=== PATIENT | female | born 1955 | race Caucasian/White ===

== ENCOUNTER → 2017-02-28 | Outpatient (CLI) | payer OTHER ==
[~2017-02-28] MED LIST: /ATOR40TA; BABY81CH; IMODIUM; NITR0.4S; PRIL20CA; THERGRAN
[2017-02-28 08:10] LABS: MEAN CORPUSCULAR HEMOGLOBIN 29.1 pg (27.0-33.0); MEAN CORPUSCULAR HGB CONC 32.6 g/dl (32.0-36.5); MEAN CORPUSCULAR VOLUME 89.4 fl (80.0-96.0); PLATELET COUNT, AUTOMATED 260 10^3/uL (150-450); RED CELL DISTRIBUTION WIDTH 12.5 % (11.5-14.5); WHITE BLOOD COUNT 6.5 10^3/uL (4.0-10.0)
[2017-02-28 08:25] LABS: ALBUMIN 3.5 GM/DL (3.2-5.2); ALKALINE PHOSPHATASE 110 U/L (45-117); ALT/SGPT 25 U/L (12-78); ANION GAP 8 MEQ/L (8-16); AST/SGOT 17 U/L (7-37); BILIRUBIN,TOTAL 0.6 MG/DL (0.2-1.0); BLOOD UREA NITROGEN 18 MG/DL (7-18); CALCIUM LEVEL 8.8 MG/DL (8.8-10.2); CARBON DIOXIDE LEVEL 27 MEQ/L (21-32); CHLORIDE LEVEL 107 MEQ/L (98-107); CHOLESTEROL LEVEL 144 MG/DL (<200); CREATININE FOR GFR 0.87 MG/DL (0.55-1.02); GLOMERULAR FILTRATION RATE > 60.0 (>45); GLUCOSE, FASTING 101 MG/DL (80-110); POTASSIUM SERUM 4.5 MEQ/L (3.5-5.1); SODIUM LEVEL 142 MEQ/L (136-145); TRIGLYCERIDES LEVEL 99 MG/DL (<150)
== END ==
LOC: M LAB 07:11
PROVIDERS: ATTEND Family Medicine
DX: I10 Essential (primary) hypertension (principal)

== ENCOUNTER → 2018-05-06 | Outpatient (CLI) | payer OTHER ==
[2018-05-06 09:13] LABS: HEMATOCRIT 39.4 % (36.0-47.0); HEMOGLOBIN 12.8 g/dl (12.0-15.5); MEAN CORPUSCULAR HEMOGLOBIN 29.2 pg (27.0-33.0); MEAN CORPUSCULAR HGB CONC 32.5 g/dl (32.0-36.5); MEAN CORPUSCULAR VOLUME 89.7 fl (80.0-96.0); PLATELET COUNT, AUTOMATED 275 10^3/uL (150-450); RED BLOOD COUNT 4.39 10^6/uL (4.00-5.40); WHITE BLOOD COUNT 7.3 10^3/uL (4.0-10.0)
[2018-05-06 09:16] LABS: ALBUMIN 3.3 GM/DL (3.2-5.2); ALT/SGPT 27 U/L (12-78); BILIRUBIN,TOTAL 0.7 MG/DL (0.2-1.0); BLOOD UREA NITROGEN 18 MG/DL (7-18); CALCIUM LEVEL 8.9 MG/DL (8.8-10.2); CARBON DIOXIDE LEVEL 29 MEQ/L (21-32); CHLORIDE LEVEL 105 MEQ/L (98-107); CHOLESTEROL LEVEL 161 MG/DL (<200); CHOLESTEROL RISK RATIO 2.639 (<5); CREATININE FOR GFR 0.81 MG/DL (0.55-1.30); GLOMERULAR FILTRATION RATE > 60.0 (>45); GLUCOSE, FASTING 101 MG/DL (70-100); HDL CHOLESTEROL 61 MG/DL (>40); LDL CHOLESTEROL 64 MG/DL (<100); NON-HDL-C 100 MG/DL; POTASSIUM SERUM 4.3 MEQ/L (3.5-5.1); SODIUM LEVEL 139 MEQ/L (136-145); TOTAL PROTEIN 6.6 GM/DL (6.4-8.2); TRIGLYCERIDES LEVEL 178 MG/DL (<150)
== END ==
LOC: M LAB 08:14
PROVIDERS: ATTEND Physician Assistant
DX: I11.9 Hypertensive heart disease without heart failure (principal)

== ENCOUNTER → 2019-05-09 | Outpatient (CLI) | payer OTHER ==
[~2019-05-09] MED LIST changes: -/ATOR40TA; +LIPI1TAB2
[2019-05-09 08:32] LABS: HEMOGLOBIN 12.1 g/dl (12.0-15.5); MEAN CORPUSCULAR HEMOGLOBIN 29.1 pg (27.0-33.0); MEAN CORPUSCULAR HGB CONC 31.8 g/dl (32.0-36.5); MEAN CORPUSCULAR VOLUME 91.3 fl (80.0-96.0); PLATELET COUNT, AUTOMATED 334 10^3/uL (150-450); RED BLOOD COUNT 4.16 10^6/uL (4.00-5.40); WHITE BLOOD COUNT 7.6 10^3/uL (4.0-10.0)
[2019-05-09 08:55] LABS: BLOOD UREA NITROGEN 16 MG/DL (7-18); CALCIUM LEVEL 8.8 MG/DL (8.8-10.2); CARBON DIOXIDE LEVEL 27 MEQ/L (21-32); CHLORIDE LEVEL 106 MEQ/L (98-107); CREATININE FOR GFR 0.91 MG/DL (0.55-1.30); GLOMERULAR FILTRATION RATE > 60.0 (>45); GLUCOSE, FASTING 128 MG/DL (70-100); POTASSIUM SERUM 4.1 MEQ/L (3.5-5.1); SODIUM LEVEL 140 MEQ/L (136-145)
--- NOTE | 2019-05-09 09:58 | ECGEPIP ---
[facility] Test Date: 2019-05-09 Pat Name: CARROLL GAUTHIER Department: Room: - Gender: Female Ribbon Cutter: TANYA : 1955 Requested By: Huber Tabares Order Number: [id number] Reading MD: Yadi Arguelles Measurements Intervals [place] Rate: 68 P: 62 VA: 171 QRS: -19 QRSD: 98 T: 22 QT: 420 QTc: 449 Interpretive Statements SINUS RHYTHM MODERATE VOLTAGE CRITERIA FOR LVH, NONSPECIFIC STT-WAVE ABNORMALITY Left atrial enlargement MARIA KAUFFMAN NO PRIOR Electronically Signed on 05-09-2019 9:58:03 EST by Yadi Arguelles
== END ==
LOC: M LAB 07:52
PROVIDERS: ATTEND Podiatrist Foot & Ankle Surgery
DX: Z01.818 Encounter for other preprocedural examination (principal)

== ENCOUNTER → 2020-01-26 | Outpatient (CLI) | payer MEDICARE, OTHER ==
[2020-01-26 07:24] LABS: HEMATOCRIT 39.8 % (36.0-47.0); HEMOGLOBIN 12.3 g/dl (12.0-15.5); MEAN CORPUSCULAR HEMOGLOBIN 28.4 pg (27.0-33.0); MEAN CORPUSCULAR HGB CONC 30.9 g/dl (32.0-36.5); MEAN CORPUSCULAR VOLUME 91.9 fl (80.0-96.0); PLATELET COUNT, AUTOMATED 280 10^3/uL (150-450); RED BLOOD COUNT 4.33 10^6/uL (4.00-5.40); WHITE BLOOD COUNT 7.5 10^3/uL (4.0-10.0)
[2020-01-26 07:48] LABS: ALBUMIN 3.2 GM/DL (3.2-5.2); ALT/SGPT 18 U/L (12-78); BILIRUBIN,TOTAL 0.6 MG/DL (0.2-1.0); BLOOD UREA NITROGEN 16 MG/DL (7-18); CALCIUM LEVEL 9.2 MG/DL (8.8-10.2); CARBON DIOXIDE LEVEL 27 MEQ/L (21-32); CHLORIDE LEVEL 107 MEQ/L (98-107); CHOLESTEROL LEVEL 170 MG/DL (<200); CHOLESTEROL RISK RATIO 2.656 (<5); CREATININE FOR GFR 0.87 MG/DL (0.55-1.30); GLOMERULAR FILTRATION RATE > 60.0 (>45); GLUCOSE, FASTING 92 MG/DL (70-100); HDL CHOLESTEROL 64 MG/DL (>40); LDL CHOLESTEROL 71 MG/DL (<100); NON-HDL-C 106 MG/DL; POTASSIUM SERUM 4.3 MEQ/L (3.5-5.1); SODIUM LEVEL 141 MEQ/L (136-145); TOTAL PROTEIN 6.8 GM/DL (6.4-8.2); TRIGLYCERIDES LEVEL 175 MG/DL (<150)
== END ==
LOC: M LAB 07:05
PROVIDERS: ATTEND Family Medicine
DX: I10 Essential (primary) hypertension (principal)

== ENCOUNTER → 2020-03-01 | Outpatient (CLI) | payer SELFPAY | LOC: M LABSMTC 17:19 | PROVIDERS: ATTEND Pediatrics | DX: Z20.828 Contact with and (suspected) exposure to other viral communicable diseases (principal) ==

== ENCOUNTER 2020-05-06 12:07 | Emergency (ER) | payer MEDICARE, OTHER ==
[~2020-05-06] VITALS: Ht 172.7 cm; Wt 102.3 kg
--- OUTSIDE RECORDS SUMMARY | 2020-05-06 12:14 | CCD ---
Continuity of Care Document (CCD) Created on: 04/03/2020 Curt Lubna External Reference #: [id number] : 1955 Sex: Female Author Author Lubna ZAMORA PA Organization Unknown Address [address] [place] [address] [place] [address] Phone [phone] Care Team Providers Care Air Battle Manager Name Role Phone Allen Guzman MD AUTM [phone] [place] [employer] AUTM [phone] Problems Description No Information Available Social History Type Date Description Comments Sex Unknown ETOH Use Occasionally consumes alcohol Tobacco Use Start: Unknown Patient has never smoked Smoking Status Reviewed: 04/03/20 Patient has never smoked Allergies, Adverse Reactions, Alerts Description No Known Drug Allergies Medications Active Medications SIG Qnty Indications Ordering Provide r Date Lansoprazole 30mg Capsules DR Unknown Valsartan 320mg Tablets Unknown Atorvastatin Calcium 40mg Tablets Unknown Bupropion Hydrochloride ER (XL) 300mg Tablets ER 24HR Unknown Estradiol 2mg Tablets take one (1) tab daily Unknown Aspirin 81 Low Dose 81mg Chewtabs Unknown Mvi Unknown Maxalt 10mg Tablets 1 tab by mouth at first onset of migraine, may repeat dose in 2 hours if needed Unknown Immunizations Description No Information Available Vital Signs Date Vital Result Comment 04/03/2020 12:48pm BP Systolic 162 mmHg BP Diastolic 82 mmHg Heart Rate 70 /min Respiratory Rate 16 /min O2 % BldC Oximetry 99 % Body Temperature 97.3 F Weight 230.00 lb Pain Level 0 06/29/2018 10:59am BP Systolic 143 mmHg BP Diastolic 88 mmHg Heart Rate 65 /min Respiratory Rate 16 /min O2 % BldC Oximetry 97 % Body Temperature 98.6 F Weight 225.00 lb Height 67.5 inches 5'7.50" BMI (Body Mass Index) 34.7 kg/m2 Pain Level 1 Results Description No Information Available Procedures Description No Information Available Medical Devices Description No Information Available Encounters Type Date Location Provider Dx Diagnosis Office Visit 04/03/2020 11:20a Main Office SOLIS Bustillo J06.9 Acute upper respiratory infection, unspecified Z20.828 Contact w and exposure to ot h viral communicable diseases Assessments Date Code Description Provider 04/03/2020 J06.9 Acute upper respiratory infectio n, unspecified SOLIS Bustillo 04/03/2020 Z20.828 Contact with and (olson spected) exposure to other viral communicable diseases SOLIS Bustillo Plan of Treatment No Information Available Functional Status Description No Information Available Mental Status Description No Information Available Referrals Description No Information Available
--- OUTSIDE RECORDS SUMMARY | 2020-05-06 12:14 | CCD | Continuity of Care Document ---
Author Author Lubna ZAMORA PA Organization Unknown Address [address] [place] [address] [place] [address] Phone [phone] Care Team Providers Care Liquor Runner Name Role Phone Allen Guzman MD AUTM [phone] [place] [employer] AUTM [phone] Problems Description No Information Available Social History [...]
--- OUTSIDE RECORDS SUMMARY | 2020-05-06 12:15 | CCD ---
Author Author Salomon Russo MD [facility] Organization Salomon Russo MD [facility] Address [address] [address] Phone Care Team Providers Care Turner Machine Operator Name Role Phone Megan SULLIVAN, Allen PP [phone] Karan SULLIVAN, FACS, Salomon Romero Unavailable [phone] Reason for Referral No Reason for Referral Recorded Problems Includes: Active, inactive, and resolved Problems All Visits Onset Date - Time Resolved Date - Time Provider Co ndition Status Cataract Senile Nuclear 02/11/2020 - 12:00AM Bernardo [facility] Active Vitreous Disorders Degeneration 02/15/2015 - 12:00AM Salomon Russo MD, FACS Active Dermatochalasis Both Eyelids 10/28/2012 - 12:00AM Salomon Russo MD, FACS Active Note: Unchanged Borderline Glaucoma Open Angle with Borderline Finding s Both Eyes 10/28/2012 - 12:00AM Salomon Russo MD, FACS Active Note: Unchanged Dry Eye Syndrome Both Eyes 10/28/2012 - 12:00AM Saolmon Russo MD, FACS Active Note: Unchanged Vitreous Floaters Both Eyes 10/28/2012 - 12:00AM Salomon Russo MD, FACS Inactive Note: Unchanged Plan of Treatment Pending Tests Order Diagnosis Results Due Ordering Provi petar Testing Ordered - Visual Field Visual Field 24-2 Age-relat ed nuclear cataract, bilateral 03/04/20 Bernardo Peres DO Testing Ordered - OCT OCT DISC Age-related nuclear cataract, bi lateral 03/04/20 Bernardo Peres DO Assessments Includes: Assessments for all patient encounters Findings Encounter Date Dry eye syndrome of both eyes 9 Month Follow-Up with Bernardo Peres DO 02/11/2020 Nuclear senile cataract 9 Month Follow-Up with Bernardo george DO 02/11/2020 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 9 Month Fo llow-Up with Bernardo Larisa DO 02/11/2020 Vitreous degeneration 9 Month Follow-Up with Bernardo Weinste in DO 02/11/2020 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 TESTING - VISUAL FIELD & OCT with Bernardo Larisa DO 12/10/2019 Bilateral myopia 1 Year Follow-Up with Bernardo Larisa DO 05/07/2019 Dry eye syndrome of both eyes 1 Year Follow-Up with Bernardo Larisa DO 05/07/2019 Nuclear senile cataract 1 Year Follow-Up with Bernardo Weinst ein DO 05/07/2019 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 1 Year Fol low-Up with Bernardo Larisa DO 05/07/2019 Vitreous degeneration 1 Year Follow-Up with Bernardo Weinstei n DO 05/07/2019 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 TESTING - VISUAL FIELD & OCT with Bernardo Larisa DO 10/02/2018 Dry eye syndrome of both eyes 6 Month Follow-Up with Bernardo Larisa DO 02/06/2018 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 6 Month Fo llow-Up with Bernardo Larisa DO 02/06/2018 Vitreous degeneration 6 Month Follow-Up with Bernardo Weinste in DO 02/06/2018 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 TESTING - VISUAL FIELD & OCT with Bernardo Larisa DO 09/27/2017 Dry eye syndrome of both eyes 8 Month Follow-Up with Bernardo Larisa DO 08/15/2017 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 8 Month Fo llow-Up with Bernardo Larisa DO 08/15/2017 Vitreous degeneration 8 Month Follow-Up with Bernardo Weinste in DO 08/15/2017 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 TESTING VF 24-2 & OCT DISC with Bernardo Larisa DO 12/21/2016 Dry eye syndrome of both eyes 8 Month Follow-Up with Bernardo Larisa DO 11/24/2016 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 8 Month Fo llow-Up with Bernardo Larisa DO 11/24/2016 Vitreous degeneration 8 Month Follow-Up with Bernardo Weinste in DO 11/24/2016 Dry eye syndrome of both eyes 1 Year Follow-Up with Roland Russo MD, FACS 02/03/2016 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 1 Year Fol low-Up with Salomon Russo MD, FACS 02/03/2016 Vitreous degeneration 1 Year Follow-Up with Salomon jean baptiste MD, FACS 02/03/2016 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 TESTING VF 24-2 & OCT DISC with Salomon Russo MD, FACS 11/17/2015 Dry eye syndrome of both eyes 6 Month Follow-Up with Juan Francisco Russo MD, FACS 02/15/2015 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 6 Month Fo llow-Up with Salomon Russo MD, FACS 02/15/2015 Vitreous degeneration 6 Month Follow-Up with Salomon Moran MD, FACS 02/15/2015 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 TESTING - VISUAL FIELD & OCT with Salomon Russo MD, FACS 08/26/2014 Dermatochalasis of both eyes 6 Month Follow-Up with Roland Russo MD, FACS 07/06/2014 Dry eye syndrome of both eyes 6 Month Follow-Up with Juan Francisco Russo MD, FACS 07/06/2014 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 6 Month Fo llow-Up with Salomon Russo MD, FACS 07/06/2014 Vitreous floaters in both eyes 6 Month Follow-Up with Salomon Russo MD, FACS 07/06/2014 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 TESTING - VISUAL FIELD & OCT with Salomon Russo MD, FACS 01/28/2014 Dermatochalasis of both eyes 6 Month Follow-Up with Roland Russo MD, FACS 11/13/2013 Dry eye syndrome of both eyes 6 Month Follow-Up with Juan Francisco Russo MD, FACS 11/13/2013 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 6 Month Fo llow-Up with Salomon Russo MD, FACS 11/13/2013 Vitreous floaters in both eyes 6 Month Follow-Up with Salomon Russo MD, FACS 11/13/2013 Classic migraine (with aura) 6 Month Follow-Up with Roland Russo MD, FACS 05/22/2013 Dermatochalasis of both eyes 6 Month Follow-Up with Roland Russo MD, FACS 05/22/2013 Dry eye syndrome of both eyes 6 Month Follow-Up with Juan Francisco Russo MD, FACS 05/22/2013 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 6 Month Fo llow-Up with Salomon Russo MD, FACS 05/22/2013 Vitreous floaters in both eyes 6 Month Follow-Up with Salomon Russo MD, FACS 05/22/2013 Dermatochalasis of both eyes 6 Month Follow-Up with Roland Russo MD, FACS 10/28/2012 Dry eye syndrome of both eyes 6 Month Follow-Up with Juan Francisco Russo MD, FACS 10/28/2012 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 6 Month Fo llow-Up with Salomon Russo MD, FACS 10/28/2012 Vitreous floaters in both eyes 6 Month Follow-Up with Salomon Russo MD, FACS 10/28/2012 Instructions Instructions not supported for this document typeNo Instructions Recorded Medical Equipment - Implanted Devices Includes: Current and historical DevicesNo Medical Equipment Recorded Medications Includes: Current and historical Medications Current Medications (continue as prescribed) Latanoprost 0.005% Ophthalmic Solution 05/07/2019 P rovider: Bernardo Peres DO Diagnosis: Open angle with bord nate findings, low risk, bilateral One drop in each eye at night time. Chlorthalidone 25 MG Oral Tablet 05/07/2019 Provide r: Diagnosis: 1/2 pill MWF Valsartan 320 MG Oral Tablet 05/07/2019 Provider: Diagnosis: buPROPion HCl ER (XL) 300 MG OR TB24 10/28/2012 Pro vider: Diagnosis: Maxalt 10 MG OR TABS 10/28/2012 Provider: Diagnosis: Aspirin 81 MG OR TABS 10/28/2012 Provider: Diagnosis: Estradiol 2 MG OR TABS 10/28/2012 Provider: Diagnosis: Lipitor 40 MG OR TABS 10/28/2012 Provider: Diagnosis: Past Medications on file Latanoprost 0.005% Ophthalmic Solution 02/06/2018 - 05/07/19 20 Provider: Bernardo Peres DO Diagnosis: Open angle with bord nate findings, low risk, bilateral One drop in each eye at night time. Latanoprost 0.005% Ophthalmic Solution 09/27/2017 - 02/07/20 18 Provider: Salomon Russo MD, [facility] Diagnosis: Open angle with bord nate findings, low risk, bilateral One drop in each eye at night time. Latanoprost 0.005 % Solution 02/03/2016 - 09/27/2017 Provide r: Salomon Russo MD, FACS Diagnosis: Open angle with bord nate findings, low risk, bilateral One drop in each eye at night time. GNP Vitamin D 1000 UNIT Tablet 02/15/2015 - 05/07/2019 Provi petar: Diagnosis: Acidophilus Probiotic Tablet 02/15/2015 - 02/03/2016 Provide r: Diagnosis: Latanoprost 0.005 % Solution 07/06/2014 - 02/03/2016 Provide r: Salomon Russo MD, FACS Diagnosis: Opn angl brderln lo risk One drop in each eye at night time. Latanoprost 0.005% OP SOLN 05/22/2013 - 07/06/2014 Provider: Salomon Russo MD, FACS Diagnosis: Opn angl brderln lo risk Multivitamins OR TABS 10/28/2012 - 02/15/2015 Provider: Diagnosis: Vagifem 10 MCG VA TABS 10/28/2012 - 05/22/2013 Provider: Diagnosis: 1x a day for 14 days then 2x a week Lansoprazole 30 MG OR CPDR 10/28/2012 - 07/06/2014 Provider: Diagnosis: Diovan 320 MG OR TABS 10/28/2012 - 05/07/2019 Provider: Diagnosis: Latanoprost 0.005% OP SOLN 10/28/2012 - 10/23/2013 Provider: Salomon Russo MD, FACS Diagnosis: Opn angl brderln lo risk keep on file. Latanoprost 0.005% OP SOLN 09/23/2012 - 10/28/2012 Provider: Salomon Russo MD, FACS Diagnosis: Medications Administered Includes: Administered Medications in patient's chartNo Administered Medications Recorded Vital Signs Includes: Vital Signs from 02/10/2019 through 02/11/2020No Vital Signs Recorded For Specified Dates Results Includes: Results from 02/10/2019 through 02/11/2020No Results Recorded For Specified Dates History of Present Illness History of Present Illness not supported for this document typeNo History of Present Illness Recorded Social History Description Last Updated Alcohol 02/11/2020 No tobacco use 02/11/2020 Not using drugs 02/11/2020 Smoking status : Former smoker 02/11/2020 Wine consumption 1 drink/week 02/11/2020 Previous smoking history 1 ppd x 20 yrs 02/15/2015 Alcohol use 10/28/2012 Procedures and Surgical History Includes: Procedures from 02/10/2019 through 02/11/2020 Procedures Code Diagnosis Performing Provider Service Location Service Date Intermediate Eye Exam Established Patient 36678 Open angle with borderline findings, low risk, bilateral, Age-related nuclear cataract, bilateral, Dry eye syndrome of bilateral lacrimal glands, Vitreous degeneration, bilateral Bernardo Peres DO 02/11/2020 Visual Field 54710 Open angle with borderline findi ngs, low risk, bilateral Bernardo Johnston MD [facility] 12/10/2019 Scodi, optic nerve with interpretation and report 99965 Open angle with borderline findings, low risk, bilateral Bernardo Eagle MD [facility] 12/10/2019 Comprehensive eye exam established patient (Signi/Sep Eval. & Man.) 17097 Open angle with borderline findings, low risk, bilateral, Age-related nuclear cataract, bilateral, Dry eye syndrome of bilateral lacrimal glands Bernardo Johnston MD [facility] 05/07/2019 Refraction [id number] Myopia, bilateral Bernardo Peres DO Da philomena Russo MD [facility] 05/07/2019 Surgical History Last Updated Surgical / procedural history : Breast B iopsy, Cholecystectomy, Hysterectomy, Bunion Surgery, Bladder Prolapse, Cancerous mole removed 05/23/2013 History of LASIK surgery of both corneas - 05/22 Medical History Includes: Medical History in patient's chart Description Last Updated Currently wearing eyeglasses driving only, and otc re aders 02/11/2020 History of essential hypertension 02/15/2015 Reported medical history : Reflux, Depression, Migrain es 08/26/2014 History of hyperlipidemia 05/22/2013 No recent change in medical history 05/22/2013 History of hypertension 10/28/2012 Family History Includes: Family History in patient's chart Description Last Updated Maternal history of macular degeneration 02/11/2020 Paternal history of family history of cancer 5 Maternal history of arthritis 07/06/2014 Maternal history of hypertension 07/06/2014 Paternal history of cataract 07/06/2014 Paternal history of diabetes mellitus 07/06/2014 Paternal history of heart disease 07/06/2014 Review of Systems Review of Systems not supported for this document typeNo Review of Systems Recorded Mental Status Mental Status not supported for this document type Description Oriented to time, place, and person Functional Status Functional Status not supported for this document typeNo Functional Status Recorded Physical Exam Physical Exam not supported for this document typeNo Physical Exam Recorded Immunizations Includes: Immunizations in patient's chartNo Immunizations Recorded Allergies Includes: Active, inactive, and resolved AllergiesNo Known Allergies Encounters Includes: Encounters from 02/10/2019 through 02/11/2020 Encounter Provider Location Date Check-In Time Check-Out Time D iagnosis 9 Month Follow-Up Bernardo Johnston MD [facility] 8:55AM 9:48AM Cataract Senile Nuclear, Dry Eye Syndrome Both Eyes, Borderline Glaucoma Open Angle with Borderline Findings Both Eyes, Vitreous Disorders Degeneration TESTING - VISUAL FIELD & OCT Bernardo Leggett MD [facility] 12/10/2019 7:36AM 7:57AM Borderline Glaucoma Open Angle with Borderline Findings Both Eyes OCT DISC Salomon Russo MD [facility] 12/10/2019 7:36AM 7:57 AM 1 Year Follow-Up Bernardo Johnston MD [facility] 04/26 9:43AM 11:02AM Refractive Error - Myopia Bi lateral, Borderline Glaucoma Open Angle with Borderline Findings Both Eyes, Dry Eye Syndrome Both Eyes, Vitreous Disorders Degeneration, Cataract Senile Nuclear Insurance Includes: Active Insurance Policies Plan Name Member ID Group # Subscriber Relationship Effective Da zoë 1 - Medicare Part [facility] ([facility]) [id number] Lubna Elias Self 2 - [employer] Care Management /PRIOR AUTHS NEEDED [id number] Nita Elias Self Advance Directives Includes: Current Advance DirectivesNo Advance Directives Recorded Health Concerns Includes: Active Health ConcernsNo Active Health Concerns Recorded Goals Includes: Active GoalsNo Active Goals Recorded Interventions Includes: Interventions for active GoalsNo Interventions Recorded Evaluations & Outcomes Includes: Evaluations & Outcomes for active GoalsNo Outcomes Recorded
--- OUTSIDE RECORDS SUMMARY | 2020-05-06 12:15 | CCD | Continuity of Care Document ---
Author Author Lubna KIRBY PA-C Organization Unknown Address 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 eart failure Salomon Gu MD Onset: 09/23/2012 Electrocardiogram abnormal Salomon Gu MD Onset: 09/23 Pure hypercholesterolemia Esme Kirby PA-C Onset: 2019 Sleep apnea Salomon Gu MD Onset: 03/02/2014 Dietary management surveillance SOLIS Alvares Onset: 10/17/2017 Obstructive sleep apnea syndrome Esme Kirby PA-C Onset: 09/01/2019 Social History Type Date Description Comments Sex Unknown ETOH Use Consumes Wine 4 per week Tobacco Use Start: Unknown End: Unknown Patient is a former smoker quit 1989, 1 ppd for 16 years Smoking Status Reviewed: 03/02/20 Patient is a former smoker qu it 1989, ppd for 16 years Exercise Type/Frequency Exercises sporadically k ayaking, walking Exercise Limitations Orthopedic Problem s/p buni onectomy Allergies, Adverse Reactions, Alerts Description No Known Drug Allergies Medications Active Medications SIG Qnty Indications Ordering Provide r Date Valsartan 320mg Tablets 1 by mouth daily at bedtime Unknown 11/03/2018 Multi Vitamin Daily Tablets once daily Unknown 05/02/2018 Chlorthalidone 25mg Tablets take 1/2 a tablet by mouth on sunday, sunday , and sunday 15tabs I11.9 Jaylen Young MD 10/17/2017 Atorvastatin Calcium 40mg Tablets 1 by mouth every night at bedtime Allen Guzman MD Maxalt 10mg Tablets 1 tab po prn Deborah Kumar MD 09/22/2012 Bupropion HCL XL 300mg Tablets ER 24HR 1 po qd Deborah Kumar MD 09/22/2012 Estradiol 2mg Tablets 1 by mouth twice a day Deborah Kumar MD 09/22/2012 Latanoprost 0.005% Solution 1 gtt o.u. hs Deborah Kumar MD 09/22/2012 Aspirin 81mg Tablets 1 po nelda ly Unknown 12/14/2008 Immunizations Description No Information Available Vital Signs Date Vital Result Comment 03/02/2020 8:05am Weight 231.00 lb Home Weight 230lb Home weight Height 68 inches 5'8" BMI (Body Mass Index) 35.1 kg/m2 Heart Rate 64 /min Regular Respiratory Rate 16 /min BP Systolic Right Arm 136 mmHg sitting, large cuf f BP Diastolic Right Arm 78 mmHg sitting, large cu ff BP Systolic Left Arm 136 mmHg sitting BP Diastolic Left Arm 74 mmHg sitting 09/01/2019 7:54am Weight 234.00 lb Height 68 inches 5'8" BMI (Body Mass Index) 35.6 kg/m2 Heart Rate 68 /min Regular Respiratory Rate 16 /min BP Systolic Right Arm 130 mmHg sitting, regular c uff BP Diastolic Right Arm 76 mmHg sitting, regular cuff BP Systolic Left Arm 130 mmHg sitting BP Diastolic Left Arm 80 mmHg sitting Results Test Acquired Date Facility Test Result H/L Range Note CMP 01/26/2020 [facility] - not interfaced (315)- - Albumin Serum/Plasma 3.2 Alt - SGPT 18 Calcium Ser/Plasma Mass/Vol 9.2 Carbon Dioxide Ser/Plasm 27 Chloride Serum/Plasma 107 Alkaline Phosphatase 131 Potassium 4.3 Protein Total 6.8 Sodium 141 Ast - Sgot 13 BUN - Urea Nitrogen 16 Glucose 92 70-100 Creatinine For GFR 0.87 Lipid Profile/Cardiac Risk Pro 01/26/2020 [facility] - not interfaced (315)- - Triglycerides 175 High <150 Cholesterol 170 <200 HDL 64 >40.0 LDL Cholesterol 71 Chol/HDL Ratio 2.656 <5 CBC without Differential 01/26/2020 [facility] - not inter faced (315)- - White Blood Count 7.5 4.0-10.0 Red Blood Count 4.33 4.00-5.40 Platelets 280 150-450 Hemoglobin 12.3 Hematocrit 39.8 Procedures Date Code Description Status 03/02/2020 92492 ECG 12-Lead Completed Medical Devices Description No Information Available Encounters Type Date Location Provider Dx Diagnosis Office Visit 03/02/2020 8:15a Main Office Esme Kirby PA-C I25.1 0 Athscl heart disease of [place] coronary artery w/o ang pctrs I11.9 Hypertensive heart disease w ithout heart failure R94.31 Abnormal electrocardiogram [ ECG] [EKG] E78.00 Pure hypercholesterolemia, u nspecified G47.33 Obstructive sleep apnea ([place]) (pediatric) Z71.3 Dietary counseling and surve illance Assessments Date Code Description Provider 03/02/2020 I25.10 Atherosclerotic heart disease of [place] coronary artery with Esme Kirby PA-C 03/02/2020 I11.9 Hypertensive heart disease witho ut heart failure Esme Kirby PA-C 03/02/2020 R94.31 Abnormal electrocardiogram [ECG] [EKG] Esme Kirby PA-C 03/02/2020 E78.00 Pure hypercholesterolemia, unspe cified Esme Kirby PA-C 03/02/2020 G47.33 Obstructive sleep apnea (adult) (pediatric) Esme Kirby PA-C 03/02/2020 Z71.3 Dietary counseling and surveilla nce Esme Kirby PA-C Plan of Treatment Future Appointment(s):* 08/31/2020 1:00 pm - Esme Kirby PA-C at Main Office 03/02/2020 - Esme iKrby PA-C* I25.10 Atherosclerotic heart disease of [place] coronary artery with * I11.9 Hypertensive heart disease without heart failure * R94.31 Abnormal electrocardiogram [ECG] [EKG] * E78.00 Pure hypercholesterolemia, unspecified * G47.33 Obstructive sleep apnea (adult) (pediatric) * Z71.3 Dietary counseling and surveillance* Recommendations:* Follow a low fat/low cholesterol diet and do at least 30 minutes of sustained aerobic activity daily. * All * Follow up:* 6 month follow up. Functional Status Functional Condition Comment Date Status Independent with all ADL's Activ e Mental Status Description No Information Available Referrals Description No Information Available
--- OUTSIDE RECORDS SUMMARY | 2020-05-06 12:15 | CCD | Continuity of Care Document ---
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 Name Role Phone Gloria Newsome MD AUT[facility] [phone] Allen Guzman MD [facility] [phone] Salomon Osullivan DO AUTM [phone] Kennedi Queen NP AUTM [phone] Problems Active Problems Provider Date Coronary arteriosclerosis Salomon Gu MD Onset: 2012 Benign hypertensive heart disease without congestive h eart failure Salomon Gu MD Onset: 09/23/2012 Electrocardiogram abnormal Salomon Gu MD Onset: 09/23 Pure hypercholesterolemia Esme Locke PA-C Onset: 2019 Sleep apnea Salomon Gu MD Onset: 03/02/2014 Dietary management surveillance SOLIS Alvares Onset: 10/17/2017 Obstructive sleep apnea syndrome Esme Locke PA-C Onset: 09/01/2019 Social History Type Date Description Comments Sex Unknown ETOH Use Consumes Wine 4 per week Tobacco Use Start: Unknown End: Unknown Patient is a former smoker quit 1989, 1 ppd for 16 years Smoking Status Reviewed: 09/01/19 Patient is a former smoker qu it [...] Available Vital Signs Date Vital Result Comment 09/01/2019 7:54am Weight 234.00 lb Height 68 inches 5'8" BMI (Body Mass Index) 35.6 kg/m2 Heart Rate 68 /min Regular Respiratory Rate 16 /min BP Systolic Right Arm 130 mmHg sitting, regular c uff BP Diastolic Right Arm 76 mmHg sitting, regular cuff BP Systolic Left Arm 130 mmHg sitting BP Diastolic Left Arm 80 mmHg sitting 11/04/2018 10:49am Weight 234.00 lb Home Weight 232lb at home weight Height 68 inches 5'8" BMI (Body Mass Index) 35.6 kg/m2 Heart Rate 70 /min BP Systolic Sitting 124 mmHg BP Diastolic Sitting 84 mmHg Results Test Acquired Date Facility Test Result H/L Range Note CMP 01/26/2020 [facility] - not interfaced (315)- - Albumin Serum/Plasma 3.2 Alt - SGPT 18 Calcium Ser/Plasma Mass/Vol 9.2 Carbon Dioxide Ser/Plasm 27 Chloride Serum/Plasma 107 Alkaline Phosphatase 131 Potassium 4.3 Protein Total 6.8 Sodium 141 Ast - Sgot 13 BUN - Urea Nitrogen 16 Glucose 92 70-100 Creatinine For GFR 0.87 Lipid Profile/Cardiac Risk Pro 01/26/2020 [facility] - not interfaced (315)- - Triglycerides 175 High <150 Cholesterol 170 <200 HDL 64 >40.0 LDL Cholesterol 71 Chol/HDL Ratio 2.656 <5 CBC without Differential 01/26/2020 [facility] - not inter faced (315)- - White Blood Count 7.5 4.0-10.0 Red Blood Count 4.33 4.00-5.40 Platelets 280 150-450 Hemoglobin 12.3 Hematocrit 39.8 Procedures Date Code Description Status 09/01/2019 21568 ECG 12-Lead Completed Medical Devices Description No Information Available Encounters Type Date Location Provider Dx Diagnosis Office Visit 09/01/2019 7:45a Main Office Esme Locke PA-C I25.1 0 Athscl heart disease of [place] coronary artery w/o ang pctrs I11.9 Hypertensive heart disease w ithout heart failure R94.31 Abnormal electrocardiogram [ ECG] [EKG] E78.00 Pure hypercholesterolemia, u nspecified G47.33 Obstructive sleep apnea ([place] lt) (pediatric) Z71.3 Dietary counseling and surve illance Assessments Date Code Description Provider 09/01/2019 I25.10 Atherosclerotic heart disease of [place] coronary artery with Esme Locke PA-C 09/01/2019 I11.9 Hypertensive heart disease witho ut heart failure Esme Locke PA-C 09/01/2019 R94.31 Abnormal electrocardiogram [ECG] [EKG] Esme Locke PA-C 09/01/2019 E78.00 Pure hypercholesterolemia, unspe cified Esme Locke PA-C 09/01/2019 G47.33 Obstructive sleep apnea (adult) (pediatric) Esme Locke PA-C 09/01/2019 Z71.3 Dietary counseling and surveilla nce Esme Locke PA-C Plan of Treatment Future Appointment(s):* 03/02/2020 8:15 am - Esme Locke PA-C at Main Office 09/01/2019 - Esme Locke PA-C* I25.10 Atherosclerotic heart disease of [place] coronary artery with * I11.9 Hypertensive heart [...]
--- OUTSIDE RECORDS SUMMARY | 2020-05-06 12:15 | CCD ---
Author Author [facility] Organization [facility] Address Unknown Phone Unavailable Care Team Providers Care Public Message Service Supervisor Name Role Phone Otisenow, Ashlie Victoria PA Unavailable Unavailable Symenow, Ashlie Victoria PA Unavailable Unavailable Symenow, Ashlie Victoria PA Unavailable Unavailable Symenow, Ashlie Victoria PA Unavailable Unavailable Symenow, Ashlie Victoria PA Unavailable Unavailable Symenow, Ashlie Victoria PA Unavailable Unavailable Symenow, Ashlie Victoria PA Unavailable Unavailable Symenow, Ashlie Victoria PA Unavailable Unavailable Symenow, Ashlie Victoria PA Unavailable Unavailable Symenow, Ashlie Victoria PA Unavailable Unavailable Symenow, Ashlie Victoria PA Unavailable Unavailable Symenow, Ashlie Esme PA Unavailable Unavailable Symenow, Ashlie Balese PA Unavailable Unavailable Symenow, Ashlie Esme PA Unavailable Unavailable Symenow, Ashlie Balese PA Unavailable Unavailable Symenow, Ashlie Esme PA Unavailable Unavailable Symenow, Ashlie Esme PA Unavailable Unavailable Symenow, Ashlie Esme PA Unavailable Unavailable Symenow, Ashlie Esme PA Unavailable Unavailable Symenow, Ashlie Balese PA Unavailable Unavailable Symenow, Ashlie Esme PA Unavailable Unavailable Symenow, Ashlie Esme PA Unavailable Unavailable Symenow, Ashlie Esme PA Unavailable Unavailable Symenow, Ashlie Esme PA Unavailable Unavailable Symenow, Ashlie Esme PA Unavailable Unavailable Symenow, Ashlie Esme PA Unavailable Unavailable Symenow, Ashlie Esme PA Unavailable Unavailable Symenow, Ashlie Esme PA Unavailable Unavailable Symenow, Ashlie Esme PA Unavailable Unavailable Symenow, Ashlie Esme PA Unavailable Unavailable Symenow, Ashlie Esme PA Unavailable Unavailable Symenow, Ashlie Esme PA Unavailable Unavailable Symenow, Ashlie Esme PA Unavailable Unavailable Symenow, Ashlie Esme PA Unavailable Unavailable Symenow, Ashlie Esme PA Unavailable Unavailable Symenow, Ashlie Esme PA Unavailable Unavailable Nick PERESEW DO Unavailable [phone] Nick PERES XIAO DO Unavailable [phone] Nick PERES XIAO DO Unavailable [phone] Nick PERES XIAO DO Unavailable [phone] Nick PERES XIAO DO Unavailable [phone] Nick PERES XIAO DO Unavailable [phone] Nick PERES XIAO DO Unavailable [phone] Nick PERES XIAO DO Unavailable [phone] Nick PERES XIAO DO Unavailable [phone] Nick PERES XIAO DO Unavailable [phone] Nick PERES XIAO DO Unavailable [phone] Nick PERESEW DO Unavailable [phone] Nick PERES XIAO DO Unavailable [phone] Nick PERES XIAO DO Unavailable [phone] Nick PERES XIAO DO Unavailable [phone] Nick PREES XIAO DO Unavailable [phone] LARISA, A. XIAO DO Unavailable [phone] Nick PERES DO Unavailable [phone] Nick PERES DO Unavailable [phone] Nick PERES DO Unavailable [phone] Nick PERES DO Unavailable [phone] DIMITRI BIGGS MD Unavailable Unavailable DIMITRI BIGGS MD Unavailable Unavailable DIMITRI BIGGS MD Unavailable Unavailable DIMITRI BIGGS MD Unavailable Unavailable Wadie, Edward DPM Unavailable Unavailable Wadie, Edward DPM Unavailable Unavailable Wadie, Edward DPM Unavailable Unavailable Wadie, Edward DPM Unavailable Unavailable Wadie, Edward DPM Unavailable Unavailable Wadie, Edward DPM Unavailable Unavailable Wadie, Edward DPM Unavailable Unavailable Wadie, Edward DPM Unavailable Unavailable Wadie, Edward DPM Unavailable Unavailable Wadie, Edward DPM Unavailable Unavailable Wadie, Edward DPM Unavailable Unavailable Wadie, Edward DPM Unavailable Unavailable Wadie, Edward DPM Unavailable Unavailable Wadie, Edward DPM Unavailable Unavailable Wadie, Edward DPM Unavailable Unavailable Wadie, Edward DPM Unavailable Unavailable Wadie, Edward DPM Unavailable Unavailable Wadie, Edward DPM Unavailable Unavailable Wadie, Edward DPM Unavailable Unavailable Wadie, Edward DPM Unavailable Unavailable Wadie, Edward DPM Unavailable Unavailable Wadie, Edward DPM Unavailable Unavailable Wadie, Edward DPM Unavailable Unavailable Wadie, Edward DPM Unavailable Unavailable Wadie, Edward DPM Unavailable Unavailable Wadie, Edward DPM Unavailable Unavailable Wadie, Edward DPM Unavailable Unavailable Wadie, Edward DPM Unavailable Unavailable Wadie, Edward DPM Unavailable Unavailable Wadie, Edward DPM Unavailable Unavailable Wadie, Edward DPM Unavailable Unavailable Wadie, Edward DPM Unavailable Unavailable Delaney Cole Unavailable Unavailable Delaney Cole Unavailable Unavailable Delaney Cole Unavailable Unavailable Cole, Delaney Zoe PA Unavailable Unavailable Cole, Delaney Mortensenlyn PA Unavailable Unavailable Cole, Delaney Mortensenlyn PA Unavailable Unavailable Cole, Delaney Mortensenlyn PA Unavailable Unavailable Cole, Delaney Mortensenlyn PA Unavailable Unavailable Cole, Delaney Mortensenlyn PA Unavailable Unavailable Cole, Delaney Mortensenlyn PA Unavailable Unavailable Re-disclosure Warning The records that you are about to access may contain information from federally-assisted alcohol or drug abuse programs. If such information is present, then the following federally mandated warning applies: This information has been disclosed to you from records protected by federal confidentiality rules (42 CFR part 2). The federal rules prohibit you from making any further disclosure of this information unless further disclosure is expressly permitted by the written consent of the person to whom it pertains or as otherwise permitted by 42 CFR part 2. A general authorization for the release of medical or other information is NOT sufficient for this purpose. The Federal rules restrict any use of the information to criminally investigate or prosecute any alcohol or drug abuse patient.The records that you are about to access may contain highly sensitive health information, the redisclosure of which is protected by Article 27-F of the [place] Public Health law. If you continue you may have access to information: Regarding HIV / AIDS; Provided by facilities licensed or operated by the [place] Office of Mental Health; or Provided by the [place] Office for People With Developmental Disabilities. If such information is present, then the following [place] mandated warning applies: This information has been disclosed to you from confidential records which are protected by state law. State law prohibits you from making any further disclosure of this information without the specific written consent of the person to whom it pertains, or as otherwise permitted by law. Any unauthorized further disclosure in violation of state law may result in a fine or mcfp sentence or both. A general authorization for the release of medical or other information is NOT sufficient authorization for further disc losure. Allergies and Adverse Reactions Type Description Substance Reaction Status Data Source(s ) Allergy to substance No Known Allergies No known allergies (situation ) ANURADHA (Salomon Moran MD [facility]) Family History Family Member Name Family Member Gender Family Member Status Date o f Status Description Data Source(s) Unknown Unknown Problem [facility] ([facility], [facility]) Unknown Unknown Problem [facility] Encounters Encounter Providers Location Date Indications Data Source(s ) Outpatient Attender: Zoe Strickland garrick 04/03/2020 10:20:00 AM EST [facility] ([facility], [facility]) Outpatient Attender: Esme ELY Main Office 03/02/2020 07:15:00 AM EST [facility] ([facility]) Outpatient<td ID="encounterTypeDescripti onID0">9 Month Follow-Up</td><td>Xiao Peres DO</td><td>Salomon Russo MD [facility]</td><td>02/11/2020</td><td>8:55AM</td><td>9:48AM</td><td><content ID="encounterDiagnosisID0-0">Cataract Senile Nuclear</content>, <content ID="encounterDiagnosisID0-1">Dry Eye Syndrome Both Eyes</content>, <content ID="encounterDiagnosisID0-2">Borderline Glaucoma Open Angle with Borderline Findings Both Eyes</content>, <content ID="encounterDiagnosisID0-3">Vitreous Disorders Degeneration</content></td> Attender: XIAO Johnston MD [facility] 02/11/2020 08:55:00 AM EST - 02/11/2020 09:48:00 AM ES T Cataract Senile NuclearVitreous Disorders DegenerationBorderline Glaucoma Open Angle with Borderline Findings Both EyesDry Eye Syndrome Both Eyes ANURADHA (Salomon Moran MD [facility]) Cataract Senile Nuclear Vitreous Disorders Degeneration Borderline Glaucoma Open Angle with Bord nate Findings Both Eyes Dry Eye Syndrome Both Eyes Outpatient<td ID="encounterTypeDescripti onID2">OCT DISC</td><td></td><td>Salomon Russo MD [facility]</td><td>12/10/2019</td><td>7:36AM</td><td>7:57AM</td><td></td> Salomon Russo MD [facility] 12/10/2019 07:36:00 AM EDT - 12/10/2019 07:57:00 AM EDT ANURADHA (Salomon Moran MD [facility]) Outpatient<td ID="encounterTypeDescripti onID1">TESTING - VISUAL FIELD & OCT</td><td>Xiao Peres DO</td><td>Salomon Russo MD [facility]</td><td>12/10/2019</td><td>7:36AM</td><td>7:57AM</td><td><content ID="encounterDiagnosisID1-0">Borderline Glaucoma Open Angle with Borderline Findings Both Eyes</content></td> Attender: XIAO Goldsmith MD [facility] 12/10/2019 07:36:00 AM EDT - 12/10/2019 07:57:00 AM ED T Borderline Glaucoma Open Angle with Borderline Findings Both Eyes ANURADHA (Salomon Moran MD [facility]) Borderline Glaucoma Open Angle with Bord nate Findings Both Eyes Outpatient Attender: Esme Locke [place] Main Office 09/01/2019 07:45:00 AM EDT [facility] ([facility] 11:[facility]00 AM EDT [facility] ([facility]) Outpatient Attender: Huber Montenegro DPM [place] Office 04/2019 10:30:00 AM EDT [facility] ([facility]) Outpatient Attender: Huber Monten[place]ro DPM [place] Office 04/26 09:00:00 AM EST [facility] ([facility]) Outpatient<td ID="encounterTypeDescripti onID3">1 Year Follow-Up</td><td>Xiao Peres DO</td><td>Salomon Russo MD [facility]</td><td>05/07/2019</td><td>9:43AM</td><td>11:02AM</td><td><content ID="encounterDiagnosisID3-0">Refractive Error - Myopia Bilateral</content>, <content ID="encounterDiagnosisID3-1">Borderline Glaucoma Open Angle with Borderline Findings Both Eyes</content>, <content ID="encounterDiagnosisID3- 2">Dry Eye Syndrome Both Eyes</content>, <content ID="encounterDiagnosisID3- 3">Vitreous Disorders Degeneration</content>, <content ID="encounterDiagnosisID3-4">Cataract Senile Nuclear</content></td> Attender: XIAO Johnston MD [facility] 05/07/2019 09:43:00 AM EST - 05/07/2019 11:02:00 AM EST Cataract Senile NuclearRefractive Error - Myopia BilateralVitreous Disorders DegenerationDry Eye Syndrome Both EyesBorderline Glaucoma Open Angle with Borderline Findings Both Eyes ANURADHA (Salomon Moran MD [facility]) Cataract Senile Nuclear Refractive Error - Myopia Bilateral Vitreous Disorders Degeneration Dry Eye Syndrome Both Eyes Borderline Glaucoma Open Angle with Bord nate Findings Both Eyes SDC Attender: Huber LEEMAd mitter: Huber Montenegro DPMReferrer: DIMITRI CHRISTINE MD [facility] 04/28/2019 11:34:20 AM EST - 05/29/2019 11:23:00 AM EST [facility] Patient discharged. Outpatient Attender: Huber Montenegro DPM [place] Office 03/28 08:45:00 AM EST [facility] ([facility]) Immunizations Vaccine Date Status Description Data Source(s) PNEUMOCOCCAL 13-VALENT CONJUGATE VACCINE (DIPHTHERIA C RM)/PF 01/12/2020 12:00:00 AM EDT completed [facility] INFLUENZA VACCINE QUADRIVALENT 2019- (65 YR UP)/MF59 C.1/PF 12/10/2019 12:00:00 AM EDT completed [facility] Medications Medication Brand Name Start Date Product Form Dose Route Admi nistrative Instructions Pharmacy Instructions Status Indications Reaction Description Data Source(s) 0.12 % 03/17/2020 12:00:00 AM EST mouthwash 473 SWISH AND SPIT 1/2 OUNCE FOR 30 SECONDS TWICE DAILY SWISH AND SPIT 1/2 OUNCE FOR 30 SECONDS TWICE DAILY SO LD: 03/18/2020 [facility] 0.015 % 07/24/2019 12:00:00 AM EDT gel 3 APPLY TOPICALLY TO RIGHT CHEEK ONCE DAILY FOR 3 DAYS APPLY TOPICALLY TO RIGHT CHEEK ONCE DAILY FOR 3 DAYS S OLD: 07/27/2019 [facility] 5 % 07/17/2019 12:00:00 AM EDT cream 40 APPLY TO BILATERAL TEMPLES, BILATERAL CHEEKS AND LEFT NECK SPARINGLY TWO TIMES A DAY FOR 2 WEEKS APPLY TO BILATERAL TEMPLES, BILATERAL CHEEKS AND LEFT NECK SPARINGLY TWO TIMES A DAY FOR 2 WEEKS SOLD: 07/18/2019 [facility] Magnesium Chloride 0.36579 MEQ/ML / Pota ssium Chloride 0.0497 MEQ/ML / Sodium Acetate 0.0163 MEQ/ML / Sodium Chloride 0.0899 MEQ/ML / Sodium gluconate 5.02 MG/ML Injectable Solution [Normosol-R] electrolyte-R (NORMOSOL-R/PLASMALYTE-R) solution electrolyte-R (NORMOSOL-R/PLASMALYTE-R) solution 05/28 11:00:00 AM EST Intravenous active at 1 00 mL/hr, Intravenous, Continuous, Starting Sydney 05/29/19 at 1100, PACU (only) [facility] Medication administered onsite Acetaminophen 325 MG / Oxycodone Hydroch loride 5 MG Oral Tablet oxyCODONE- acetaminophen (PERCOCET) 5-325 MG 1 tablet oxyCODONE-acetaminophen (PERCOCET) 5- 325 MG 1 tablet 05/29/2019 10:45:29 AM EST 1 {tbl} Oral c ompleted 1 tablet, Oral, Once as needed, for pain level 1-3, Starting Sydney 05/29/19 at 1045, For 1 dose, PACU & Post-op [facility] Medication administered onsite Acetaminophen 325 MG / Oxycodone Hydroch loride 5 MG Oral Tablet oxyCODONE- acetaminophen (PERCOCET) 5-325 MG 2 tablet oxyCODONE-acetaminophen (PERCOCET) 5- 325 MG 2 tablet 05/29/2019 10:39:01 AM EST 2 {tbl} Oral a ctive 2 tablet, Oral, Once as needed, moderate pain (4-6), Starting Sydney 05/29/19 at 1039, For 1 dose, PACU & Post-op [facility] Medication administered onsite ondansetron (ZOFRAN) injection 4 mg 13526-213-27 05/29/2019 10:15:5 2 AM EST 4 mg Intravenous active 4 mg, In travenous, Once as needed, nausea, vomiting, if not given in last 4 hours, Starting Sydney 05/29/19 at 1015, For 1 dose, PACU & Post-op [facility] Medication administered onsite HYDROmorphone (DILAUDID) injection 0.5 mg [id number] 05/29/2019 10:15:52 AM EST 0.5 mg Intravenous active 0.5 mg, Intravenous, Every 5 min PRN, severe pain (7-10), Starting Sdyney 05/29/19 at 1015, For 7 doses, PACU & Post-op [facility] Medication administered onsite Magnesium Chloride 0.25606 MEQ/ML / Pota ssium Chloride 0.0497 MEQ/ML / Sodium Acetate 0.0163 MEQ/ML / Sodium Chloride 0.0899 MEQ/ML / Sodium gluconate 5.02 MG/ML Injectable Solution [Normosol-R] electrolyte-R (NORMOSOL-R/PLASMALYTE-R) solution 1,000 mL electrolyte-R (NORMOSOL-R/PLASMALYTE-R) solution 1,000 mL 05/29/2019 07:00:00 AM EST 1000 mL Intravenous active at 100 mL/hr, 1,000 mL, Intravenous, Continuous, Starting Sydney 05/29/19 at 0700, Pre-op [facility] Medication administered onsite Crutches-Aluminum 05/14/2019 12:00:00 AM EST completed [facility] 5-325 mg 05/14/2019 12:00:00 AM EST tablet 30 TAKE ONE TABLET BY MOUTH EVERY 4 TO 6 HOURS NEEDED MAXIMUM DAILY DOSE = 6 TAKE ONE TABLET BY MOUTH EVERY 4 TO 6 HOURS NEEDED MAXIMUM DAILY DOSE = 6 SOLD: 05/18/2019 [facility] Acetaminophen 325 MG / Oxycodone Hydrochloride 5 MG Or al Tablet [Percocet] Percocet 05/14/2019 12:00:00 AM EST ORAL completed [facility] ([facility]) valsartan 320 MG Oral Tablet Valsartan 320 MG Oral Tab let Valsartan 320 MG Oral Tablet 05/07/2019 12:00:00 AM EST 1 active valsartan 320 MG Oral Tablet ANURADHA (Salomon Moran MD [facility]) Chlorthalidone 25 MG Oral Tablet Chlorthalidone 25 MG Oral T ablet 05/07/2019 12:00:00 AM EST active chlortha lidone 25 MG Oral Tablet ANURADHA (Salomon Moran MD [facility]) latanoprost 0.05 MG/ML Ophthalmic Soluti on Latanoprost 0.005% Ophthalmic Solution Latanoprost 0.005% Ophthalmic Solution 05/07/2019 12:00:00 AM EST 1 active latanoprost 0.05 MG/ ML Ophthalmic Solution ANURADHA (Salomon Moran MD [facility]) 25 mg 08/13/2018 12:00:00 AM EDT tablet 20 TAKE ONE-HALF TABLET BY MOUTH EVERY DAY ON SUNDAY, SUNDAY AND SUNDAY TAKE ONE-HALF TABLET BY MOUTH EVERY DAY ON SUNDAY, SUNDAY AND SUNDAY SOLD: 03/30/2019 [facility] 25 mg 08/13/2018 12:00:00 AM EDT tablet 20 TAKE ONE-HALF TABLET BY MOUTH EVERY DAY ON SUNDAY, SUNDAY AND SUNDAY TAKE ONE-HALF TABLET BY MOUTH EVERY DAY ON SUNDAY, SUNDAY AND SUNDAY SOLD: 07/03/2019 [facility] latanoprost 0.05 MG/ML Ophthalmic Soluti on Latanoprost 0.005% Ophthalmic Solution Latanoprost 0.005% Ophthalmic Solution 02/06/2018 12:00:00 AM EST 1 aborted latanoprost 0.05 MG/ ML Ophthalmic Solution ANURADHA (Salomon Moran MD [facility]) GNP Vitamin D 1000 UNIT Tablet GNP Vitamin D 1000 UNIT Table t 02/15/2015 12:00:00 AM EST 1 aborted GNP Vit navarrete D ANURADHA (Salomon Moran MD [facility]) valsartan 320 MG Oral Tablet [Diovan] Diovan 320 MG OR TABS Diovan 320 MG OR TABS 10/28/2012 12:00:00 AM EDT 1 aborted valsartan 320 MG Oral Tablet [Diovan] ANURADHA (Salomon Moran MD [facility]) Insurance Providers Payer name Policy type / Coverage type Policy ID Covered constitution party ID Covered constitution party's relationship to gracia Policy Gracia Plan Information SELF PAY ONLY [id number] SP [id number] MEDICARE [id number] SP [id number] UMR [facility] [id number] SP [id number] [employer] [place] Other 0 Self 0 Medicare Part B [facility] Other 0 Se lf 0 UMR [id number] UMR [id number] Rita [id number] UMR [id number] Rita [id number] Umr/Uhc/[employer] Maintenance [employer] (HMO) [id number] Self [id number] Umr Commercial [id number] Self [id number] [place] Medigap Part B [id number] Self [id number] Umr Commercial [id number] Self [id number] Umr Commercial [id number] Self [id number] Umr Commercial [id number] Self [id number] Umr Commercial [id number] Self [id number] [employer] [id number] SP [id number] [employer] [id number] SP [id number] [employer] PPO P [id number] S [id number] Problems, Conditions, and Diagnoses Code Display Name Description Problem Type Effective Dates Data Source(s) 366.16 Cataract Senile Nuclear Cataract Senile Nuclear Proble m 02/11/2020 12:00:00 AM EST ANURADHA (Salomon Moran MD [facility]) [id number] Obstructive sleep apnea syndrome Obstructive sle ep apnea syndrome Problem 09/01/2019 12:00:00 AM EDT [facility] ([facility]) [id number] Pure hypercholesterolemia Pure hypercholesterolemia Pr oblem 09/01/2019 12:00:00 AM EDT [facility] ([facility]) [id number] Hammer toe Hammer toe Problem 06/26/2019 12:00:00 AM ED T [facility] ([facility]) [id number] Acquired hallux valgus Acquired hallux valgus Problem 04/25/2019 12:00:00 AM EST [facility] ([facility]) [id number] Pain in limb Pain in limb Problem 04/25/2019 12:00:00 A M EST [facility] ([facility]) M79.672 Pain in left foot Pain in left foot Diagnosis 05/28 06:26:00 AM EST [facility] M20.12 Hallux valgus (acquired), left foot Hallux valgu s (acquired), left foot Diagnosis 05/29/2019 06:26:00 AM EST [facility] Surgeries/Procedures Procedure Description Date Indications Data Source(s) ECG ROUTINE ECG W/LEAST 12 LDS W/I&R 03/02/2020 12:00: 00 AM EST [facility] ([facility]) Intermediate Eye Exam Established Patient Intermediate Eye Exam Established Patient 02/11/2020 12:00:00 AM EST ANURADHA (Sridhar Moran MD [facility]) Scodi, optic nerve with interpretation and report Scod i, optic nerve with interpretation and report 12/10/2019 12:00:00 AM EDT JACOBY Sifuentes (Salomon Moran MD [facility]) Visual Field Visual Field 12/10/2019 12:00:00 AM EDT Travon ARANDA (Salomon Moran MD [facility]) ECG ROUTINE ECG W/LEAST 12 LDS W/I&R 09/01/2019 12:00: 00 AM EDT [facility] ([facility]) X-Ray Foot Complete 08/29/2019 12:00:00 AM EDT [facility] X-Ray Foot Complete 07/28/2019 12:00:00 AM EDT [facility] ([facility]) X-Ray Foot Complete 06/26/2019 12:00:00 AM EDT [facility] ([facility]) Apply Splint Short Leg 06/11/2019 12:00:00 AM EDT [facility] ([facility]) X-Ray Foot Complete 06/04/2019 12:00:00 AM EDT [facility] Hallux Valgus Correction (Lapidus) 05/29/2019 12:00:00 AM EST [facility] Apply Splint Short Leg 05/29/2019 12:00:00 AM EST [facility] Foot Complete 05/14/2019 12:00:00 AM EST [facility] Refraction Refraction 05/07/2019 12:00:00 AM EST Travon ARANDA (Salomon Moran MD [facility]) Comprehensive eye exam established patient (Signi/Sep Eval. & Man.) Comprehensive eye exam established patient (Signi/Sep Eval. & Man.) 05/07/2019 12:00:00 AM EST ANURADHA (Salomon Moran MD [facility]) Results ID Date Data Source [id number] 04/03/2020 12:00:00 AM EST [facility] Name Value Range Interpretation Code Description Data Genna rce(s) Supporting Document(s) SARS coronavirus 2 Ag Negative [facility] This lab was ordered by [facility] and reported by [facility]. ID Date Data Source [id number] 03/01/2020 12:00:00 AM EST [facility] Name Value Range Interpretation Code Description Data Genna rce(s) Supporting Document(s) 2019-nCoV RNA XXX NAHOMI+probe-Imp [facility] This lab was ordered by [facility] and reported by [employer]. ID Date Data Source [id number] 01/26/2020 11:28:00 AM EST [facility] ([facility]) Name Value Range Interpretation Code Description Data Genna rce(s) Supporting Document(s) White Blood Count 7.5 4.0-10.0 [facility] ([facility]) Red Blood Count 4.33 4.00-5.40 [facility] ([facility]) Platelets 280 150-450 [facility] ([facility] Hematocrit 39.8 [facility] ([facility]) Hemoglobin 12.3 [facility] ([facility]) ID Date Data Source [id number] 01/26/2020 11:28:00 AM EST [facility] ([facility]) Name Value Range Interpretation Code Description Data Genna rce(s) Supporting Document(s) Triglycerides 175 [facility] ([facility]) HDL 64 [facility] ([facility] Cholesterol 170 [facility] ([facility]) Cholesterol in LDL [Mass/volume] in Serum or Plasma by calculation 71 [facility] ([facility]) Chol/HDL Ratio 2.656 [facility] ([facility]) ID Date Data Source [id number] 01/26/2020 11:28:00 AM EST [facility] ([facility]) Name Value Range Interpretation Code Description Data Genna rce(s) Supporting Document(s) Albumin [Mass/volume] in Serum or Plasma 3.2 [facility] ([facility]) Alanine aminotransferase [Enzymatic activity/volume] in Serum or Pl asma 18 [facility] ([facility] [facility]) Calcium [Mass/volume] in Serum or Plasma 9.2 [facility] ([facility]) Carbon dioxide, total [Moles/volume] in Serum or Plasma 27 [facility] ([facility]) Chloride [Moles/volume] in Serum or Plasma 107 [facility] ([facility]) Potassium [Moles/volume] in Serum or Plasma 4.3 [facility] ([facility]) Alkaline phosphatase [Enzymatic activity/volume] in Serum or Plasma 1 31 [facility] ([facility]) Protein [Mass/volume] in Serum or Plasma 6.8 [facility] ([facility]) Sodium 141 [facility] ([facility] Aspartate aminotransferase [Enzymatic activity/volume] in Serum or Plasma 13 [facility] ([facility]) Urea nitrogen [Mass/volume] in Serum or Plasma 16 [facility] ([facility]) Glucose 92 70-100 [facility] ([facility] Creatinine For GFR 0.87 [facility] ([facility]) ID Date Data Source [id number] 06/10/2019 10:53:29 AM EDT [facility] NT INFORMATIONPatient MRN Name Date of Age Gend*PT [id number] Lubna Elias 1955 63 years F SDCPT Location Admission Date/Time Visit [facility] --- --- EPI ID CSN Admitting Provider [id number] Huber Montenegro DPM([id number]) [place] [address] OPERATIVE REPORT OPNAME: LUBNA ELIAS#: [id number] #: [id number] ADMISSION DATE: 05/29/2019DOB: 1955 SEX: F PT TYPE: H SURAMIRAHT #: [id number] CARE PHYSICIAN:DATE OF OPERATION: 05/29/2019PLACE OF S [facility].SURGEON:Huber Montenegro DPM.PELT SALTER:None.PREOPERATIVE DIAGNOSIS:Painful bunion deformity of the left foot.POSTOPERATIVE DIAGNOSIS:Painful bunion deformity of the left foot.PROCEDURES:1. Lapidus fusion of the first metatarsal cuneiform joint of the leftfoot.2. Application of posterior splint, left leg.ANESTHESIA:General anesthesia and local.HEMOSTASIS:Pneumatic ankle tourniquet of the left ankle at 250 mmHg.ESTIMATED BLOOD LOSS:Minimal, less than 10 mL.INDICATION FOR PROCEDURE:This is a 63-year-old female who had presented to my office with pain onthe left foot due to severe bunion deformity. On physical examination,there was noted hypermobile first ray of the left foot. Patient had trieddifferent shoe gear, multiple inserts, different pain medication withminimal improvement. Patient was up to surgical correction. All benefits,risks, and complication of the procedure were discussed with the patient.Patient agreed to have the surgery. Consent was obtained and included inthe chart.DESCRIPTION OF PROCEDURE:Patient was brought into the operating room and placed on the operatingtable in the supine position. A pneumatic ankle tourniquet was then placedaround the left ankle. Following administration of general anesthesia,local infiltration of the first ray of the left foot was obtained [id number] mL of 1:1 mixture of 0.5% Marcaine plain and 2% lidocaine plain. Theleft foot was then scrubbed, prepped and draped in the usual asepticmanner. An Esmarch bandage was used to accentuate the left foot and thepneumatic ankle tourniquet was then inflated at 250 mmHg. Attention wasthen directed to the dorsal aspect of the left first ray where alongitudinal skin incision was obtained on the dorsal aspect of the firstray medial and parallel to the extensor hallucis tendons. Skin incisionwas then centered over the first metatarsophalangeal joint. This incisionwas then deepened through the subcutaneous tissue with care being taken toidentify and retract all vital neural and vascular structures. Next,attention was directed to the first intermetatarsal space via the originalincision where deep dissection was obtained utilizing sharp and bluntdissection. Lateral capsulotomy of the first metatarsophalangeal joint wasobtained. Next, the abductor hallucis tendon was identified andtenotomized. Next, the extensor hallucis brevis tendon was identified andtenotomized. Next, a Z-lengthening of the extensor hallucis longus tendonwas obtained. Upon completion of all those steps, the lateral contractureof the left hallux was noted to be released and the sesamoid apparatus wentto the proper position. Next, a linear incision of the periosteal andcapsular structures was obtained. The periosteal and capsular structurewas then reflected medially and laterally, thus exposing the head of thefirst metatarsal and the base of the hallux to the operative field.Utilizing the sagittal saw, the medial bony prominence of the head of thefirst metatarsal and base of the left hallux was excised and removed andpassed from the operative field. Next, a skin incision was then extendedmore proximally over the first metatarsal cuneiform joint. The incisionwas then deepened through the subcutaneous tissue with care being taken toidentify and retract all vital neural and vascular structures. Next, aperiosteal and a capsular incision was obtained over the firstmetatarsal-cuneiform joint. The periosteal and the capsular structure wasthen reflected medially and laterally, thus exposing the joint to theoperative field. Next, utilizing the sagittal saw, a transverse osteotomycut was obtained in the base of the first metatarsal and another osteotomycut was obtained on the distal aspect of the medial cuneiform. Uponcompletion of both cuts, a wafer of bone was removed from the base of thefirst metatarsal and the distal aspect of the medial cuneiform to removeall the cartilaginous part of the joint. Next, utilizing the sagittal saw,the lateral aspect of the base of the first metatarsal was excised andremoved. Upon completion of those steps, the first metatarsal wasplantarflexed and corrected into straight position. Utilizing a 0.201-kqczF-ntgv, it was driven from the first metatarsal across to the secondmetatarsal to act as a temporary fixation. Utilizing mini C-arm,fluoroscopic pictures were taken to confirm correct position of the firstmetatarsal with excellent correction of the intermetatarsal angle. Next,utilizing a K-wire from the Ar[employer] bone screw set, the K-wire was drivenfrom the dorsal lateral aspect of the base of the first metatarsal into theplantar medial aspect of the cuneiform to act as a temporary fixation aswell as guidance for screw fixation. Following AO principle and technique,4.0 x 36 mm cannulated headless self-tapping bone screw from the Arthrexwere inserted with excellent compression noted. Utilizing the mini C-arm,fluoroscopic pictures were taken to confirm excellent position of the screwacross the joint. Next, the K-wire was removed and passed from theoperative field. Utilizing a Lapidus T-shaped plate from [employer], a smallsize was used and applied on the dorsal aspect of the joint to act as abuttress plate. The plate was fixated to the bone with locking screws, twoof 3.5 x 16 mm as well as one of 3.5 x 12 mm locking screws. Uponcompletion of the fixation, fluoroscopic pictures were taken to confirmexcellent position of the fixation with excellent correction of thedeformity. The 0.062 inch K-wire was then removed and passed from theoperative field. Next, the surgical incision was irrigated with copiousamount of sterile normal saline. The periosteal and the capsular structurewas then reapproximated and coapted utilizing 3-0 Vicryl. The subcutaneoustissue was then reapproximated and coapted utilizing 4-0 Vicryl. T he skinwas then reapproximated and coapted utilizing 4-0 nylon in a horizontalmattress suture technique mixed it with simple interrupted suturetechnique. Upon completion of the procedure, 20 mL of 0.5% Marcaine plainwere injected as a postoperative anesthesia block. Also, 1 mL ofdexamethasone phosphate was also injected around the incision site. Thesurgical incision was then dressed with Betadine soaked Adaptic, 4 x 4, andKerlix. The pneumatic ankle tourniquet was then deflated and a prompthyperemic response was noted to all digits of the left foot. Next, acotton roll was applied around the left foot and leg. Utilizing the QuickStep a posterior splint was applied and secured with Nathan wraps. Patienttolerated the procedure and anesthesia very well. Patient was transferredto the recovery room with vital signs stable and vascular status intact tothe left foot.KARO VIDALES/ANGELICA Job #: [id number] DOC #: [id number] Name Value Range Interpretation Code Description Data Genna rce(s) Supporting Document(s) ID Date Data Source [id number] 05/29/2019 07:37:06 AM EST [facility] NT INFORMATIONPatient MRN Name Date of Age Gend*PT [id number] Lubna Elias 1955 63 years F SDCPT Location Admission Date/Time [facility]26 --- Huber Montenegro DPM([id number]) EPI ID CSN Admitting Provider [id number] Huber Montenegro DPM([id number])Pre-Procedure History and Physical:The history and physical were reviewed and the patient was examined.There are no changes to the H&P.This procedure has been fully reviewed with the patient and written informedconsent has been obtained.Huber Montenegro DPM05/29/19 7:37 AMHuber Montenegro DPM7:36 AM Name Value Range Interpretation Code Description Data [facility] Supporting Document(s) ID Date Data Source [id number] 05/16/2019 11:30:07 AM EST [facility] NT INFORMATIONPatient MRN Name Date of Age Gend*PT [id number] Lubna Elias 1955 63 years F SDCPT Location Admission Date/Time Visit ID Attending Provider --- --- --- Huber Montenegro DPM([id number]) EPI ID CSN Admitting Provider [id number] Huber Montenegro DPM([id number])[facility] [place], LLPDate: 05/14/19Name: Lubna EliasDOB: 1955Sex: FAge: 63 yrsAcct#: [id number] Note: PRESENTS TO DISCUSS HER UP AND COMING SURGERY OF HER LEFT FOOTSubjectiveCC: Patient presents with pain of the left first MTPJ.HPI: Left first MTPJ pain. Pain is moderate. Present for several years. Occurredgradually. Progressive symptoms. Reported as sharp pain. Rated as moderate inseverity. Better at rest. Worse with movement. Aggravated by shoe gear, walkingand weight bearing. Moderately alleviated by NSAIDS and minimally alleviated byrest.Current Meds Prior to Visit: Bupropion Hydrochloride ER (XL) 300 mg,Lansoprazole 30 mg, Valsartan 320 mg, Atorvastatin Calcium 40 mg, Estradiol 2mg, Chlorthalidone 25 mg, Latanoprost 0.005 %, Aspirin 81 mg, Multi VitaminAllergies: NKDAPM:Problem List: Acquired hallux valgus, Pain in limbHealth Maintenance:Influenza Vaccination - (01/2019)Medical Problems:Anemia, Gastroesophageal Reflux Disease, Depression, High CholesterolSurgical Hx:Removal of Gallbladder, Partial Hysterectomy, Kidney Stone, Breast BiopsyReviewed, no changes.FH:Siblings have a history of Heart Disease.Father:Heart Disease, Cancer.Mother:Hypertension.Reviewed, no changes.SH:Personal Habits: Smoking: Patient is a former smoker.Alcohol: Consumes 1-2glasses of wine per week.Drug Use: Denies Drug Use.Daily Caffeine: Consumes onaverage 2 sodas per day.Reviewed, no changes.Date: 05/14/2019Was the patient queried about smoking behavior? Yes NoDoes the patient currently smoke? Smoking: Patient is a former smoker.Was the patient counseled about smoking cessation? Yes NoROS:Const: Denies constitutional symptoms.Eyes: Denies eye symptoms.ENMT: Denies ear symptoms. Denies nasal symptoms. Denies mouth or throatsymptoms.CV: Reports high cholesterol.Resp: Denies respiratory symptoms.GI: Denies gastrointestinal symptoms.Musculo: Reports left foot pain and joint pain.Skin: Reports calluses.Breast: Denies breast problems.Neuro: Denies neurologic symptoms.Psych: Denies psychiatric symptoms.Endocrine: Denies endocrine symptoms.Eloy/Lymph: Denies hematologic symptoms.Reviewed, no changes.ObjectiveWt Prior: 230lb as of 01/31/20Exam:Const: Appears healthy and well developed. Speech is clear and appropriate.Alert and oriented x 3.CV: Dorsalis pedis pulse 2+ bilaterally. Posterior tibial pulse 2+ bilaterally.Extremities: Peripheral circulation is normal with no evidence of clubbing orcyanosis. No edema of the lower limbs bilaterally. Minimal varicosity in thelower legs. No venous insufficiency noted. Capillary refill is < 2 seconds.Temperature is warm and equal bilaterally.Lymph: No palpable or visible regional lymphadenopathy.Musculo:Feet have a low arch appearance and are pronated bilateral with forefootvarus and rear foot valgus in stance. There is a fully compensated forefootvarus deformity of both feet. There is a fully compensated rearfoot valgusdeformity of both feet. Ankle equinus is noted with the feet unable todorsiflex 10 degrees past neutral with knee extended. There is hallux abductovalgus deformity of the left foot. There is hallux limitus deformity of bothfeet. There is moderate pain on end range of motion of the left 1st mtp joint.There is no pain on end range of motion of the right 1st mtp joint. There ismoderate pain on palpation of the medial aspect of metatarsal phalangeal joint 1of the left foot. Hypermobile 1st ray bilateral feet. There is enlargement ofthe dorsal medial eminence of the 1st metatarsal head of the left foot.laterally deviated left hallux.The toes 2+3+4 bilateral are contracted butreducible.Skin: No rashes, lesions or ecchymosis on the lower extremities. Hair appearsnormal.Toenails are within normal limits. There are hyperkeratotic lesions which aredeep seated and well-circumscribed at the following locations: under metatarsalhead 2 of the right foot. They are raised. There is pain on palpation.There isno pinpoint bleeding on debridement. There are hyperkeratotic lesions which aredeep seated and well-circumscribed at the following locations: on dorso medialaspect of toe 1 of both feet. They are raised and hyperkeratotic. The lesionsare pinch calluses. There is pain on palpation.There is no pinpoint bleeding ondebridement.Neuro: Epicritic sensation is intact. Sensation to light touch is decreased onthe feet. There is clinically significant peripheral neuropathy of the lowerextremities identified by absence of proprioception and absence of touchsensation by [place] pressure anesthesiometer with inability to sense 5sites out of 7 on the plantar surface of each foot tested with a 5.07monofilament. Sensation to vibration is moderately decreased on the feet.Reflexes: Achilles and patellar DTR's are brisk and symmetrical. Babinski'sreflex is negative bilaterally.Dx Studies:X-Ray interpretation:View: Left DP view, lateral view and oblique view of the foot.Reason for/History: Left chronic foot pain.Impression: Deformity of the left foot and severe bunion deformity on the leftfoot.Assessment #1: Hx M20.12 Hallux valgus (acquired), left footCare Plan:Comments : Non-surgical conservative treatment options consisting ofcortisone injection therapy, orthotic therapy, shoe accommodation, oral NSAIDsand physical therapy were discussed. The patient's condition was discussed atlength. Surgical treatment alternatives consisting of Lapidus fusion of theleft 1st metatarsal cuneiform joint were described and explained in detail. Thefollowing treatment recommendations and options were reviewed and discussed indetail with the patient along with their pros and cons: orthotic therapy andaccommodative padding. This patient has decided to undergo surgical repair ofthe foot condition. A long surgical consult was performed and the surgical consent was reviewedin great detail using x-rays, diagrams, and/or a model and all questions wereanswered. Patient was made aware that this is an elective and non-emergencysurgery and that they must be willing to accept the risks involved with anysurgical procedure. These risks may include but are not limited to excessive andpersistent pain, swelling, bleeding, scarring, infection of soft tissue/bone,phlebitis, numbness and possible nerve damage, stiffness, delayed healing andrecovery, failure to heal, no recovery, no cure effected, recurrence of thedeformity or ailment, development of a new ailment, the need for furthertreatment or surgery, allergic reactions, adverse drug reactions, amputations,paralysis, and . Patient was made aware that an infection of tissue or bonecan occur with any elective surgery and may result in the need for: antibioticsby mouth or through the vein for 2-8 weeks or more time period, referral toinfectious disease specialist and other specialists, admission to the hospital,further surgery and possibly amputation of the infected area. No guarantee wasmade to outcome. Patient was given the option of a 2nd opinion and also toldthat they could live with the problem and continue with conservative care ifthey are not willing to accept these risks. They were also made aware of thepotential for additional costs of medical care should one or more of thesecomplications occur. The etiology of the condition and the procedure werediscussed at length with the patient. Patient was made aware of the pros, cons,risks, complications and alternatives to surgery. The consent was read andfully understood. All questions were answered to patient's satisfaction andconsent was signed.Treatments: The etiology of the condition and the procedure were discussed atlength with the patient. The consent was read and fully understood. Allquestions were answered to patient's satisfaction and consent was signed.Advised on risks and complications of surgery including but not limited toinfection, recurrence, scar tissue, numbness, over/under correction, stiffness,weakness, pain, swelling, slow or delayed healing, need for additional surgeryor physical therapy. Patient understands and accepts risks . No guaranteesgiven. Questions invited and answered fully.Follow up and Instructions: Surgery has been scheduled for 05/22/19.Med New : Crutches-Aluminum Non weight bearing left foot with the use of crutches Qty 10 Refill Percocet 5-325 mg 1 tab by mouth every 4-6 hours as needed Qty30 0 RefillAssessment #2: Hx M79.672 Pain in left footCare Plan:Seen By: HUBER MONTENEGRO DPM Name Value Range Interpretation Code Description Data Genna rce(s) Supporting Document(s) ID Date Data Source [id number] 05/09/2019 10:49:00 AM EST [facility] ([facility]) Name Value Range Interpretation Code Description Data Genna rce(s) Supporting Document(s) White Blood Count 7.6 4.0-10.0 [facility] ([facility]) Red Blood Count 4.16 4.00-5.40 [facility] ([facility]) Hemoglobin 12.1 [facility] ([facility]) Platelets 334 172-450 [facility] Hematocrit 38.0 [facility] ([facility]) ID Date Data Source [id number] 05/09/2019 10:49:00 AM EST [facility] ([facility] Name Value Range Interpretation Code Description Data Genna rce(s) Supporting Document(s) Glucose 128 83-110 [facility] ([facility]) Sodium 140 136-145 [facility] ([facility] Blood Urea Nitrogen 16 7-18 [facility] ([facility]) Creatinine 0.91 0.6-1.0 [facility] ([facility]) Potassium 4.1 3.5-5.1 [facility] ([facility]) Chloride 106 98-107 [facility] ([facility]) Carbon Dioxide 27 21-32 [facility] ([facility]) Glomerular filtration rate/1.73 sq M.pre dicted [Volume Rate/Area] in Serum or Plasma by Creatinine-based formula (MDRD) Laboratory test result [facility] ([facility]) Calcium 8.8 8.2-9.6 [facility] ([facility] Procedure Social History Code Duration Value Status Description Data Source(s ) Smoking 04/03/2020 12:00:00 AM EST Patient has never smoked co mpleted Patient has never smoked [facility] ([facility]) Smoking 03/02/2020 12:00:00 AM EST Patient is a former smoker completed Patient is a former smoker [facility] ([facility]) Smoking 02/11/2020 09:49:24 AM EST Ex-smoker (finding) [facility] ed Ex-smoker (finding) [facility]UR[facility]HA ([facility]) Smoking 07/28/2019 12:00:00 AM EDT Patient is a former smoker completed Patient is a former smoker [facility] ([facility]) Alcohol intake 05/29/2019 12:00:00 AM EST Not Asked completed [facility] Smoking 05/29/2019 12:00:00 AM EST Former smoker completed Former smoker [facility] Vital Signs ID Date Data Source UNK Name Value Range Interpretation Code Description Data Source(s) Body weight 230.00 [lb_av] 230.00 [lb_av] MEDEN T ([facility]) Body temperature 97.3 [degF] 97.3 [degF] [facility] ([facility], [facility]) Oxygen saturation in Arterial blood by Pulse oximetry 99 % 99 % [facility]) Respiratory rate 16 /min 16 /min [facility] ( [facility]) Heart rate 70 /min 70 /min [facility] ([facility], [facility]) Diastolic blood pressure 82 mm[Hg] 82 mm[Hg] [facility] ([facility], [facility]) Systolic blood pressure 162 mm[Hg] 162 mm[Hg] M EDENT ([facility], [facility]) Diastolic blood pressure 74 mm[Hg] 74 mm[Hg] [facility] ([facility]) sitting Systolic blood pressure 136 mm[Hg] 136 mm[Hg] M EDENT ([facility]) sitting Diastolic blood pressure 78 mm[Hg] 78 mm[Hg] [facility] ([facility]) sitting, large cuff Systolic blood pressure 136 mm[Hg] 136 mm[Hg] M EDENT ([facility]) sitting, large cuff Respiratory rate 16 /min 16 /min [facility] ( [facility]) Heart rate 64 /min 64 /min [facility] ([facility]) Regular Body mass index (BMI) [Ratio] 35.1 kg/m2 35.1 k g/m2 [facility] ([facility]) Body height 68 [in_i] 68 [in_i] [facility] ([facility]) 5'8" Body weight 231.00 [lb_av] 231.00 [lb_av] MEDEN T ([facility]) Diastolic blood pressure 80 mm[Hg] 80 mm[Hg] [facility] ([facility]) sitting Systolic blood pressure 130 mm[Hg] 130 mm[Hg] M EDENT ([facility]) sitting Diastolic blood pressure 76 mm[Hg] 76 mm[Hg] [facility] ([facility]) sitting, regular cuff Systolic blood pressure 130 mm[Hg] 130 mm[Hg] M EDENT ([facility]) sitting, regular cuff Respiratory rate 16 /min 16 /min [facility] ( [facility]) Heart rate 68 /min 68 /min [facility] ([facility]) Regular Body mass index (BMI) [Ratio] 35.6 kg/m2 35.6 k g/m2 [facility] ([facility]) Body height 68 [in_i] 68 [in_i] [facility] ([facility]i [facility]) 5'8" Body weight 234.00 [lb_av] 234.00 [lb_av] [facility] T ([facility]) Body temperature 95.4 [degF] 95.4 [degF] [facility] Body temperature 97.2 [degF] 97.2 [degF] [facility] ([facility]) Oxygen saturation in Arterial blood by Pulse oximetry 95 % 95 % [facility] Respiratory rate 16 /min 16 /min [facility] Body temperature 36.83 Isamar 36.83 Isamar [facility] Heart rate 75 /min 75 /min [facility] Diastolic blood pressure 62 mm[Hg] 62 mm[Hg] [facility] Systolic blood pressure 112 mm[Hg] 112 mm[Hg] [facility] Body mass index (BMI) [Ratio] 36.32 kg/m2 36.32 kg/m2 [facility] Body weight 105.189 kg 105.189 kg [facility] Body height 170.2 cm 170.2 cm [facility] Oxygen saturation in Arterial blood by Pulse oximetry 96 % 96 % [facility] Body mass index (BMI) [Ratio] 35.0 kg/m2 35.0 k g/m2 [facility] ([facility]) Heart rate 77 /min 77 /min [facility] ([facility]) Diastolic blood pressure 82 mm[Hg] 82 mm[Hg] [facility] [facility] Systolic blood pressure 156 mm[Hg] 156 mm[Hg] [facility] [facility] Body weight 230.00 [lb_av] 230.00 [lb_av] MED[facility] T ([facility] [facility] Body height 68 [in_i] 68 [in_i] [facility] ([facility]) 5'8" Patient Treatment Plan of Care Planned Activity Planned Date Details Description Data Source (s) latanoprost 0.05 MG/ML Ophthalmic Solution 05/07/2019 12:00:[address] [facility] (Salomon Moran MD [facility]) latanoprost 0.05 MG/ML Ophthalmic Solution 02/06/2018 12:00:[address] [place] (Salomon Moran MD [facility])
[2020-05-06] MEDS ORDERED: VALS1TAB68 PO (12:30)
[2020-05-06] MEDS ORDERED: MAXA10TA14 PO (12:30)
[2020-05-06] MEDS ORDERED: ESTR2TAB2 PO (12:30)
[2020-05-06] MEDS ORDERED: BUPR300T92 PO (12:30)
--- OUTSIDE RECORDS SUMMARY | 2020-05-06 13:03 | CCD ---
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 [...] is protected by Article 27-F of the [facility] Public Health law. If you continue you may have access to information: Regarding HIV / AIDS; Provided by facilities licensed or operated by the [facility] Office of Mental Health; or Provided by the [facility] Office for People With Developmental Disabilities. If such information is present, then the following [facility] mandated warning applies: This information has been [...] law may result in a fine or correction sentence or both. A general authorization for the release of medical or other information is NOT sufficient authorization for further disc losure. Allergies and Adverse Reactions Type Description Substance Reaction Status Data Source(s ) Allergy to substance No Known Allergies No known allergies (situation ) ANURADHA (Salomon Moran MD [facility]) Family History Family Member Name Family Member Gender Family Member Status Date o f Status Description Data Source(s) Unknown Unknown Problem [facility] ([facility], [facility]) Unknown Unknown Problem [facility] ([facility] Encounters Encounter Providers Location Date Indications Data Source(s ) Outpatient Attender: Zoe Strickland garrick 04/03/2020 10:20:00 AM EST [facility] ([facility], [facility]) Outpatient Attender: Esme ELY Main Office 03/02/2020 07:15:00 AM EST [facility] ([facility]) Outpatient<td ID="encounterTypeDescripti onID0">9 Month Follow-Up</td><td>Xiao Peres DO</td><td>Salomon Russo MD [facility]</td><td>02/11/2020</td><td>8:55AM</td><td>9:48AM</td><td><content ID="encounterDiagnosisID0-0">Cataract Senile Nuclear</content>, <content ID="encounterDiagnosisID0-1">Dry Eye Syndrome Both Eyes</content>, <content ID="encounterDiagnosisID0-2">Borderline Glaucoma Open Angle with Borderline Findings Both Eyes</content>, <content ID="encounterDiagnosisID0-3">Vitreous Disorders Degeneration</content></td> Attender: XIAO Johnston MD [facility] 02/11/2020 08:55:00 AM EST - 02/11/2020 09:48:00 AM ES T Cataract Senile NuclearVitreous Disorders DegenerationBorderline Glaucoma Open Angle with Borderline Findings Both EyesDry Eye Syndrome Both Eyes ANURADHA (Salomon Moran MD [facility]) Cataract Senile Nuclear Vitreous Disorders Degeneration Borderline Glaucoma Open Angle with Bord nate Findings Both Eyes Dry Eye Syndrome Both Eyes Outpatient<td ID="encounterTypeDescripti onID2">OCT DISC</td><td></td><td>Salomon Russo MD [facility]</td><td>12/10/2019</td><td>7:36AM</td><td>7:57AM</td><td></td> Salomon Russo MD [facility] 12/10/2019 07:36:00 AM EDT - 12/10/2019 07:57:00 AM EDT ANURADHA (Salomon Moran MD [facility]) Outpatient<td ID="encounterTypeDescripti onID1">TESTING - VISUAL FIELD & OCT</td><td>Xiao Peres DO</td><td>Salomon Russo MD [facility]</td><td>12/10/2019</td><td>7:36AM</td><td>7:57AM</td><td><content ID="encounterDiagnosisID1-0">Borderline Glaucoma Open Angle with Borderline Findings Both Eyes</content></td> Attender: XIAO Goldsmith MD [facility] 12/10/2019 07:36:00 AM EDT - 12/10/2019 07:57:00 AM ED T Borderline Glaucoma Open Angle with Borderline Findings Both Eyes ANURADHA (Salomon Moran MD [facility]) Borderline Glaucoma Open Angle with Bord nate Findings Both Eyes Outpatient Attender: Esme Locke [place] Main Office 09/01/2019 07:45:00 AM EDT [facility] ([facility]) [facility] 11:00:00 AM EDT [facility] ([facility]) Outpatient Attender: Huber Montenegro DPM [place] Office 04/2019 10:30:00 AM EDT [facility] ([facility]) Outpatient Attender: Huber Montenegro DPM [place] Office 04/26 09:00:00 AM EST [facility] ([facility]) Outpatient<td ID="encounterTypeDescripti onID3">1 Year Follow-Up</td><td>Xiao Peres DO</td><td>Salomon Rsuso MD [facility]</td><td>05/07/2019</td><td>9:43AM</td><td>11:02AM</td><td><content ID="encounterDiagnosisID3-0">Refractive Error - Myopia Bilateral</content>, <content ID="encounterDiagnosisID3-1">Borderline Glaucoma Open Angle with Borderline Findings Both Eyes</content>, <content ID="encounterDiagnosisID3- 2">Dry Eye Syndrome Both Eyes</content>, <content ID="encounterDiagnosisID3- 3">Vitreous Disorders Degeneration</content>, <content ID="encounterDiagnosisID3-4">Cataract Senile Nuclear</content></td> Attender: XIAO Johnston MD [facility] 05/07/2019 09:43:00 AM EST - 05/07/2019 11:02:00 AM EST Cataract Senile NuclearRefractive Error - Myopia BilateralVitreous Disorders DegenerationDry Eye Syndrome Both EyesBorderline Glaucoma Open Angle with Borderline Findings Both Eyes ANURADHA (Salomon Moran MD [facility]) Cataract Senile Nuclear Refractive Error - Myopia Bilateral Vitreous Disorders Degeneration Dry Eye Syndrome Both Eyes Borderline Glaucoma Open Angle with Bord nate Findings Both Eyes SDC Attender: Huber LEEMAd mitter: Huber Montenegro DPMReferrer: DIMITRI CHRISTINE MD [facility] 04/28/2019 11:34:20 AM EST - 05/29/2019 11:23:[address] [facility] Patient discharged. Outpatient Attender: Huber Montenegro DPM [place] Office 03/28 08:45:00 AM EST [facility] ([facility]) Immunizations Vaccine Date Status Description Data Source(s) [...] SOLD: 07/18/2019 [facility] Magnesium Chloride 0.17015 MEQ/ML / Pota ssium Chloride 0.0497 MEQ/ML / Sodium Acetate 0.0163 MEQ/ML / Sodium Chloride 0.0899 MEQ/ML / Sodium gluconate 5.02 MG/ML Injectable Solution [Normosol-R] electrolyte-R (NORMOSOL-R/PLASMALYTE-R) solution electrolyte-R (NORMOSOL-R/PLASMALYTE-R) solution 05/28 11:00:00 AM EST Intravenous active at 1 00 mL/hr, Intravenous, Continuous, Starting [place] 05/29/19 at 1100, PACU (only) [facility] Medication administered onsite Acetaminophen 325 MG / Oxycodone Hydroch loride 5 MG Oral Tablet oxyCODONE- acetaminophen (PERCOCET) 5-325 MG 1 tablet oxyCODONE-acetaminophen (PERCOCET) 5- 325 MG 1 tablet 05/29/2019 10:45:29 AM EST 1 {tbl} Oral c ompleted 1 tablet, Oral, Once as needed, for pain level 1-3, Starting Sydney 05/29/19 at 1045, For 1 dose, PACU & Post-op [facility] Medication administered onsite Acetaminophen 325 MG / Oxycodone Hydroch loride 5 MG Oral Tablet oxyCODONE- acetaminophen (PERCOCET) 5-325 MG 2 tablet oxyCODONE-acetaminophen (PERCOCET) 5- 325 MG 2 tablet 05/29/2019 10:39:01 AM EST 2 {tbl} Oral a ctive 2 tablet, Oral, Once as needed, moderate pain (4-6), Starting Sydney 05/29/19 at 1039, For 1 dose, PACU & Post-op [facility] Medication administered onsite ondansetron (ZOFRAN) injection 4 mg [id number] 05/29/2019 10:15:5 2 AM EST 4 mg Intravenous active 4 mg, In travenous, Once as needed, nausea, vomiting, if not given in last 4 hours, Starting [place] 05/29/19 at 1015, For 1 dose, PACU & Post-op [facility] Medication administered onsite HYDROmorphone (DILAUDID) injection 0.5 mg [id number] 05/29/2019 10:15:52 AM EST 0.5 mg Intravenous active 0.5 mg, Intravenous, Every 5 min PRN, severe pain (7-10), Starting Sydney 05/29/19 at 1015, For 7 doses, PACU & Post-op [facility] Medication administered onsite Magnesium Chloride 0.89384 MEQ/ML / Pota ssium Chloride 0.0497 MEQ/ML / Sodium Acetate 0.0163 MEQ/ML / Sodium Chloride 0.0899 MEQ/ML / Sodium gluconate 5.02 MG/ML Injectable Solution [Normosol-R] electrolyte-R (NORMOSOL-R/PLASMALYTE-R) solution 1,000 mL electrolyte-R (NORMOSOL-R/PLASMALYTE-R) solution 1,000 mL 05/29/2019 07:00:00 AM EST 1000 mL Intravenous active at 100 mL/hr, 1,000 mL, Intravenous, Continuous, Starting Sydney 05/29/19 at 0700, Pre-op [facility] Medication administered onsite Crutches-Aluminum 05/14/2019 12:00:00 AM EST completed [facility] 5-325 mg 05/14/2019 12:00:00 AM EST [...] 05/14/2019 12:00:00 AM EST ORAL completed [facility] ([facility]) valsartan 320 MG Oral Tablet Valsartan 320 MG Oral Tab let Valsartan 320 MG Oral Tablet 05/07/2019 12:00:00 AM EST 1 active valsartan 320 MG Oral Tablet ANURADHA (Salomon Moran MD [facility]) Chlorthalidone 25 MG Oral Tablet Chlorthalidone 25 MG Oral T ablet 05/07/2019 12:00:00 AM EST active chlortha lidone 25 MG Oral Tablet ANURADHA (Salomon Moran MD [facility]) latanoprost 0.05 MG/ML Ophthalmic Soluti on Latanoprost 0.005% Ophthalmic Solution Latanoprost 0.005% Ophthalmic Solution 05/07/2019 12:00:00 AM EST 1 active latanoprost 0.05 MG/ ML Ophthalmic Solution ANURADHA (Salomon Moran MD [facility]) 25 mg 08/13/2018 12:00:00 AM EDT tablet [...] ML Ophthalmic Solution ANURADHA (Salomon Moran MD [facility]) GNP Vitamin D 1000 UNIT Tablet GNP Vitamin D 1000 UNIT Table t 02/15/2015 12:00:00 AM EST 1 aborted GNP Vit navarrete D ANURADHA (Salomon Moran MD [facility]) valsartan 320 MG Oral Tablet [Diovan] Diovan 320 MG OR TABS Diovan 320 MG OR TABS 10/28/2012 12:00:00 AM EDT 1 aborted valsartan 320 MG Oral Tablet [Diovan] ANURADHA (Salomon Moran MD [facility]) Insurance Providers Payer name Policy type / Coverage type Policy ID Covered green party ID Covered green party's relationship to gracia Policy Gracia Plan Information MEDICARE [id number] SP [id number] UMR [facility] [id number] SP [id number] SELF PAY ONLY [id number] SP [id number] [employer] [place] Other 0 Self 0 Medicare Part B [facility] Other 0 Se lf 0 UMR [id number] UMR [id number] Rita [id number] UMR [id number] Rita [id number] Umr/Uhc/[employer] (HMO) [id number] Self [id number] Umr Commercial [id number] Self [id number] [place] Medigap Part B [id number] Self [id number] Umr Commercial [id number] Self [id number] Umr Commercial [id number] Self [id number] Umr Commercial [id number] Self [id number] Umr Commercial [id number] Self [id number] [employer] [id number] SP [id number] [employer] [id number] SP [id number] [employer] PPO P [id number] S [id number] Problems, Conditions, and Diagnoses Code Display Name Description Problem Type Effective Dates Data Source(s) 366.16 Cataract Senile Nuclear Cataract Senile Nuclear Proble m 02/11/2020 12:00:00 AM EST ANURADHA (Salomon Moran MD [facility]) 91274050 Obstructive sleep apnea syndrome Obstructive sle ep apnea syndrome Problem 09/01/2019 12:00:00 AM EDT [facility] ([facility]) 145362167 Pure hypercholesterolemia Pure hypercholesterolemia Pr oblem 09/01/2019 12:00:00 AM EDT [facility] ([facility]) [id number] Hammer toe Hammer toe Problem 06/26/2019 12:00:00 AM ED T [facility] 83370051 Acquired hallux valgus Acquired hallux valgus Problem 04/25/2019 12:00:00 AM EST [facility] ([facility]) 25239688 Pain in limb Pain in limb Problem 04/25/2019 12:00:00 A M EST [facility] ([facility]) M79.672 Pain in left foot Pain in left foot Diagnosis 05/28 06:26:[address] [facility] M20.12 Hallux valgus (acquired), left foot Hallux valgu s (acquired), left foot Diagnosis 05/29/2019 06:26:00 AM EST [facility] Surgeries/Procedures Procedure Description Date Indications Data Source(s) ECG ROUTINE ECG W/LEAST 12 LDS W/I&R 03/02/2020 12:00: 00 AM EST [facility] ([facility]) Intermediate Eye Exam Established Patient Intermediate Eye Exam Established Patient 02/11/2020 12:00:00 AM EST ANURADHA (Sridhar Moran MD [facility]) Scodi, optic nerve with interpretation and report Scod i, optic nerve with interpretation and report 12/10/2019 12:00:00 AM EDT JACOBY Sifuentes (Salomon Moran MD [facility]) Visual Field Visual Field 12/10/2019 12:00:00 AM EDT Travon ARANDA (Salomon Moran MD [facility]) ECG ROUTINE ECG W/LEAST 12 LDS W/I&R 09/01/2019 12:00: 00 AM EDT [facility] ([facility]) X-Ray Foot Complete 08/29/2019 12:00:00 AM EDT [facility] X-Ray Foot Complete 07/28/2019 12:00:00 AM EDT [facility] ([facility]) X-Ray Foot Complete 06/26/2019 12:00:00 AM EDT [facility] ([facility]) Apply Splint Short Leg 06/11/2019 12:00:00 AM EDT MED[facility] ([facility]) X-Ray Foot Complete 06/04/2019 12:00:00 AM EDT [facility] Hallux Valgus Correction (Lapidus) 05/29/2019 12:00:00 AM EST [facility] Apply Splint Short Leg 05/29/2019 12:00:00 AM EST [facility] Foot Complete 05/14/2019 12:00:00 AM EST [facility] Refraction Refraction 05/07/2019 12:00:00 AM EST Travon ARANDA (Salomon Moran MD [facility]) Comprehensive eye exam established patient (Signi/Sep Eval. & Man.) Comprehensive eye exam established patient (Signi/Sep Eval. & Man.) 05/07/2019 12:00:00 AM EST ANURADHA (Salomon Moran MD [facility]) Results ID Date Data Source [id number] 04/03/2020 12:00:00 AM EST [facility] Name Value Range Interpretation Code Description Data Genna rce(s) Supporting Document(s) SARS coronavirus 2 Ag Negative [facility] This lab was ordered by [facility] and reported by [facility]. ID Date Data Source [id number] 03/01/2020 12:00:00 AM EST [facility] Name Value Range Interpretation Code Description Data Genna rce(s) Supporting Document(s) 2019-nCoV RNA XXX NAHOMI+probe-Imp [facility] This lab was ordered by [facility] and reported by [facility]. ID Date Data Source [id number] 01/26/2020 11:28:00 AM EST [facility] ([facility]) Name Value Range Interpretation Code Description Data Genna rce(s) Supporting Document(s) White Blood Count 7.5 4.0-10.0 [facility] ([facility]) Red Blood Count 4.33 4.00-5.40 [facility] ([facility]) Platelets 280 150-450 [facility] ([facility]) Hematocrit 39.8 [facility] ([facility]) Hemoglobin 12.3 [facility] ([facility]) ID Date Data Source [id number] 01/26/2020 11:28:00 AM EST [facility] ([facility]) Name Value Range Interpretation Code Description Data Genna rce(s) Supporting Document(s) Triglycerides 175 [facility] ([facility]) HDL 64 [facility] ([facility]) Cholesterol 170 [facility] ([facility]) Cholesterol in LDL [Mass/volume] in Serum or Plasma by calculation 71 [facility] ([facility]) Chol/HDL Ratio 2.656 [facility] ([facility]) ID Date Data Source [id number] 01/26/2020 11:28:00 AM EST [facility] ([facility]) Name Value Range Interpretation Code Description Data Genna rce(s) Supporting Document(s) Albumin [Mass/volume] in Serum or Plasma 3.2 [facility] ([facility]) Alanine aminotransferase [Enzymatic activity/volume] in Serum or Pl asma 18 [facility] ([facility]) Calcium [Mass/volume] in Serum or Plasma 9.2 [facility] ([facility]) Carbon dioxide, total [Moles/volume] in Serum or Plasma 27 [facility] ([facility]) Chloride [Moles/volume] in Serum or Plasma 107 [facility] ([facility]) Potassium [Moles/volume] in Serum or Plasma 4.3 [facility] ([facility]) Alkaline phosphatase [Enzymatic activity/volume] in Serum or Plasma 1 31 [facility] ([facility]) Protein [Mass/volume] in Serum or Plasma 6.8 [facility] ([facility]) Sodium 141 [facility] ([facility]) Aspartate aminotransferase [Enzymatic activity/volume] in Serum or Plasma 13 [facility] ([facility]) Urea nitrogen [Mass/volume] in Serum or Plasma 16 [facility] ([facility]) Glucose 92 70-100 [facility] ([facility]) Creatinine For GFR 0.87 [facility] ([facility]) ID Date Data Source [id number] 06/10/2019 10:53:[address] [facility] INFORMATIONPatient MRN Name Date of Age Gend*PT [id number] Lubna Elias 1955 63 years F SDCPT Location Admission Date/Time [facility] --- --- EPI ID CSN Admitting Provider [id number] Huber Montenegro DPM([id number]) [place] [address] OPERATIVE REPORT OPNAME: LUBNA ELIAS#: [id number] #: [id number] ADMISSION DATE: 05/29/2019DOB: 1955 SEX: F PT TYPE: H SURAMIRAHT #: [id number] CARE PHYSICIAN:DATE OF OPERATION: 05/29/2019[facility].SURGEON:Huber Montenegro DPM.DEPUTY CLERK OF SUPERIOR COURT:None.PREOPERATIVE DIAGNOSIS:Painful bunion deformity of the left foot.POSTOPERATIVE [...] ray of the left foot was obtained [id number] mL of 1:1 mixture of 0.5% Marcaine [...] and corrected into straight position. Utilizing a 0.856-navqK-ceic, it was driven from the first metatarsal [...] intact tothe left foot.KARO VIDALES/ANGELICA Job #: [id number] DOC #: [id number] Name Value Range Interpretation Code Description Data Genna rce(s) Supporting Document(s) ID Date Data Source [id number] 05/29/2019 07:37:06 AM EST [facility] NT INFORMATIONPatient MRN Name Date of Age Gend*PT [id number] Lubna Elias 1955 63 years F SDCPT [facility] Ad[facility] Date[facility] --- Huber Montenegro DPM([id number]) EPI ID CSN Admitting Provider [id number] Huber Montenegro DPM([id number])Pre-Procedure History and Physical:The history and physical were reviewed and the patient was examined.There are no changes to the H&P.This procedure has been fully reviewed with the patient and written informedconsent has been obtained.Huber Montenegro DPM05/29/19 7:37 AMHuber Montenegro DPM7:36 AM Name Value Range Interpretation Code Description Data [facility] Supporting Document(s) ID Date Data Source [id number] 05/16/2019 11:30:[address] [facility] NT INFORMATIONPatient MRN Name Date of Age Gend*PT [id number] Lubna Elias 1955 63 years F SDCPT Location Admission Date/Time Visit ID Attending Provider --- --- --- Huber Montenegro DPM([id number]) EPI ID CSN Admitting Provider [id number] Huber Montenegro DPM([id number])[facility], LLPDate: 05/14/19Name: Lubna EliasDOB: 1955Sex: FAge: 63 yrsAcct#: [id number] Note: PRESENTS TO DISCUSS HER UP AND [...] of proprioception and absence of touchsensation by [place] pressure anesthesiometer with inability to sense 5sites [...] rce(s) Supporting Document(s) ID Date Data Source [id number] 05/09/2019 10:49:00 AM EST [facility] ([facility]) Name Value Range Interpretation Code Description Data Genna rce(s) Supporting Document(s) White Blood Count 7.6 4.0-10.0 [facility] ([facility]) Red Blood Count 4.16 4.00-5.40 [facility] ([facility]) Hemoglobin 12.1 [facility] ([facility]) Platelets 334 172-450 [facility] Hematocrit 38.0 [facility] ([facility]) ID Date Data Source [id number] 05/09/2019 10:49:00 AM EST [facility] ([facility]) Name Value Range Interpretation Code Description Data Genna rce(s) Supporting Document(s) Glucose 128 83-110 [facility] ([facility]) Sodium 140 136-145 [facility] ([facility]) Blood Urea Nitrogen 16 7-18 [facility] ([facility]) Creatinine 0.91 0.6-1.0 [facility] ([facility]) Potassium 4.1 3.5-5.1 [facility] ([facility]) Chloride 106 98-107 [facility] ([facility]) Carbon Dioxide 27 21-32 [facility] ([facility]) Glomerular filtration rate/1.73 sq M.pre dicted [Volume Rate/Area] in Serum or Plasma by Creatinine-based formula (MDRD) Laboratory test result [facility] ([facility]) Calcium 8.8 8.2-9.6 [facility] ([facility]) Procedure Social History Code Duration Value Status Description Data Source(s ) Smoking 04/03/2020 12:00:00 AM EST Patient has never smoked co mpleted Patient has never smoked [facility] ([facility]) Smoking 03/02/2020 12:00:00 AM EST Patient is a former smoker completed Patient is a former smoker [facility] ([facility]) Smoking 02/11/2020 09:49:24 AM EST Ex-smoker (finding) [facility] ed Ex-smoker (finding) ANURADHA (Salomon Moran MD [facility]) Smoking 07/28/2019 12:00:00 AM EDT Patient is a former smoker completed Patient is a former smoker [facility] ([facility]) Alcohol intake 05/29/2019 12:00:00 AM EST Not Asked completed [facility] Smoking 05/29/2019 12:00:00 AM EST Former smoker completed Former smoker [facility] Vital Signs ID Date Data Source UNK Name Value Range Interpretation Code Description Data Source(s) Body weight 230.00 [lb_av] 230.00 [lb_av] [facility] T ([facility]) Body temperature 97.3 [degF] 97.3 [degF] [facility] ([facility], [facility]) Oxygen saturation in Arterial blood by Pulse oximetry 99 % 99 % [facility] ([facility], [facility]) Respiratory rate 16 /min 16 /min [facility] ( [facility], [facility]) Heart rate 70 /min 70 /min [facility] ([facility], [facility]) Diastolic blood pressure 82 mm[Hg] 82 mm[Hg] [facility] ([facility], [facility]) Systolic blood pressure 162 mm[Hg] 162 mm[Hg] M ED[facility] ([facility], [facility]) Diastolic blood pressure 74 mm[Hg] 74 mm[Hg] [facility] ([facility]) sitting Systolic blood pressure 136 mm[Hg] 136 mm[Hg] M [facility] ([facility]) sitting Diastolic blood pressure 78 mm[Hg] 78 mm[Hg] [facility] ([facility]) sitting, large cuff Systolic blood pressure 136 mm[Hg] 136 mm[Hg] M [facility] ([facility]) sitting, large cuff Respiratory rate 16 /min 16 /min [facility] ( [facility]) Heart rate 64 /min 64 /min [facility] ([facility]) Regular Body mass index (BMI) [Ratio] 35.1 kg/m2 35.1 k g/m2 [facility] ([facility]) Body height 68 [in_i] 68 [in_i] [facility] ([facility]) 5'8" Body weight 231.00 [lb_av] 231.00 [lb_av] [facility] T ([facility]) Diastolic blood pressure 80 mm[Hg] 80 mm[Hg] [facility] ([facility]) sitting Systolic blood pressure 130 mm[Hg] 130 mm[Hg] M [facility] ([facility]) sitting Diastolic blood pressure 76 mm[Hg] 76 mm[Hg] [facility] ([facility]) sitting, regular cuff Systolic blood pressure 130 mm[Hg] 130 mm[Hg] [facility] ([facility]) sitting, regular cuff Respiratory rate 16 /min 16 /min [facility] ( [facility]) Heart rate 68 /min 68 /min [facility] ([facility]) Regular Body mass index (BMI) [Ratio] 35.6 kg/m2 35.6 k g/m2 [facility] ([facility]) Body height 68 [in_i] 68 [in_i] [facility] ([facility]) 5'8" Body weight 234.00 [lb_av] 234.00 [lb_av] [facility] T ([facility]) Body temperature 95.4 [degF] 95.4 [degF] [facility] Body temperature 97.2 [degF] 97.2 [degF] [facility] ([facility]) Oxygen saturation in Arterial blood by Pulse oximetry 95 % 95 % [facility] Respiratory rate 16 /min 16 /min [facility] Body temperature 36.83 Isamar 36.83 Isamar [facility] Heart rate 75 /min 75 /min [facility] Diastolic blood pressure 62 mm[Hg] 62 mm[Hg] [facility] Systolic blood pressure 112 mm[Hg] 112 mm[Hg] [facility] Body mass index (BMI) [Ratio] 36.32 kg/m2 36.32 kg/m2 [facility] Body weight 105.189 kg 105.[address] [facility] Body height 170.2 cm 170.[address] [facility] Oxygen saturation in Arterial blood by Pulse oximetry 96 % 96 % [facility] Body mass index (BMI) [Ratio] 35.0 kg/m2 35.0 k g/m2 [facility] ([facility]) Heart rate 77 /min 77 /min [facility] ([facility]) Diastolic blood pressure 82 mm[Hg] 82 mm[Hg] [facility] Systolic blood pressure 156 mm[Hg] 156 mm[Hg] [facility] Body weight 230.00 [lb_av] 230.00 [lb_av] [facility] Body height 68 [in_i] 68 [in_i] [facility] ([facility]) 5'8" Patient Treatment Plan of Care Planned Activity Planned Date Details Description Data Source (s) latanoprost 0.05 MG/ML Ophthalmic Solution 05/07/2019 12:00:[address] ANURADHA (Salomon Moran MD [facility]) latanoprost 0.05 MG/ML Ophthalmic Solution 02/06/2018 12:00:[address] SHEVLIN (Salomon Moran MD [facility])
[2020-05-06] MEDS ORDERED: NS 1,000 ML IV ONE (13:30)
[2020-05-06] MEDS ORDERED: KETOROLAC 30 MG/ML 1ML VIAL IV ONE (13:30)
[2020-05-06] MEDS ORDERED: ONDANSETRON 4MG/2ML VIAL IV ONE (13:30)
[2020-05-06 13:36] LABS: BASO % 0.3 % (0.0-1.0); EOS # 0.1 10^3/uL (0.0-0.5); EOS % 0.5 % (0.0-3.0); HEMATOCRIT 39.7 % (36.0-47.0); HEMOGLOBIN 12.8 g/dl (12.0-15.5); LYMPH % 21.9 % (24.0-44.0); MEAN CORPUSCULAR HEMOGLOBIN 29.2 pg (27.0-33.0); MEAN CORPUSCULAR HGB CONC 32.2 g/dl (32.0-36.5); MEAN CORPUSCULAR VOLUME 90.6 fl (80.0-96.0); MONO # 0.6 10^3/uL (0.0-0.8); MONO % 6.1 % (0.0-5.0); NEUTROPHILS # 6.6 10^3/uL (1.5-8.5); NEUTROPHILS % 70.7 % (36.0-66.0); PLATELET COUNT, AUTOMATED 291 10^3/uL (150-450); RED BLOOD COUNT 4.38 10^6/uL (4.00-5.40); WHITE BLOOD COUNT 9.3 10^3/uL (4.0-10.0)
[2020-05-06 14:09] LABS: ALBUMIN 3.3 GM/DL (3.2-5.2); BILIRUBIN,DIRECT 0.2 MG/DL (0.0-0.2); BILIRUBIN,TOTAL 0.8 MG/DL (0.2-1.0); TOTAL PROTEIN 7.2 GM/DL (6.4-8.2)
--- NOTE | 2020-05-06 14:18 | REP ---
INDICATION: l flank pain, "feels like last stone" COMPARISON: 02/28/2015. TECHNIQUE: CT Scan of the abdomen and pelvis was performed without intravenous contrast. Sagittal and coronal reconstruction images performed. FINDINGS: Lung bases: Unremarkable. There is a small hiatal hernia. Liver: Grossly unremarkable. Gallbladder: Prior cholecystectomy. Spleen: Grossly unremarkable.. Adrenals: Normal. Pancreas: Grossly unremarkable.. Kidneys: There is a 6 mm calculus at the right ureteropelvic junction. There does not appear to be significant right hydronephrosis. There is relatively mild left hydroureteronephrosis, which is caused by a 4 mm calculus in the distal end of the left ureter. Small and large bowel: There are few sigmoid diverticula present without acute diverticulitis. Free fluid: None. Abdominal aorta: No aneurysm. Adenopathy: None. Appendix: Not inflamed. Osseous structures: There are mild degenerative changes of the spine without compression deformity. Pelvis: No mass. No bladder calculus seen. IMPRESSION: There is a 4 mm calculus in the distal left ureter causing mild left hydroureteronephrosis. There is a 6 mm calculus at the right ureteropelvic junction without evidence of right hydronephrosis. <Electronically signed by Dusty Garcia > 05/06/20 [id number]
[2020-05-06] MEDS ORDERED: FLOM0.4C39 PO (14:48)
[2020-05-06] MEDS ORDERED: KETO10TAB PO (14:48)
[2020-05-06] MEDS ORDERED: ZOFR4TAB16 PO (14:48)
[2020-05-06 14:57] VITALS: BP 164/77
== END 2020-05-06 15:09 | disposition home or self-care (01) ==
LOC: M ED 12:07
DX: N20.0 Calculus of kidney (principal); I10 Essential (primary) hypertension; E78.5 Hyperlipidemia, unspecified; K21.9 Gastro-esophageal reflux disease without esophagitis; Z79.899 Other long term (current) drug therapy; Z79.82 Long term (current) use of aspirin
CPT/HCPCS: 74176; 80047; 80076; 81001; 83690; 85025; 87086; 96361; 96374; 96375; 99284; J1885; J2405

== ENCOUNTER → 2021-02-23 | Outpatient (CLI) | payer MEDICARE, OTHER ==
[~2021-02-23] MED LIST changes: +ASPI81CH33 PO; +ATOR40TA75 PO; +BUPR300T92 PO; +CHLO125TA PO; +CORE6.25 PO; +ESTR2TAB3 PO; +FLOM0.4C39 PO; +KETO10TAB PO; +LANS15CA PO; +LANS30CA PO; +MAXA10TA14 PO; +SPIR-10 PO; +VALS1TAB68 PO; +XALA0.007 OU; +ZOFR4TAB16 PO
[2021-02-23 08:52] LABS: HEMATOCRIT 39.8 % (36.0-47.0); MEAN CORPUSCULAR HEMOGLOBIN 29.2 pg (27.0-33.0); MEAN CORPUSCULAR HGB CONC 32.7 g/dl (32.0-36.5); MEAN CORPUSCULAR VOLUME 89.4 fl (80.0-96.0); PLATELET COUNT, AUTOMATED 270 10^3/uL (150-450); RED BLOOD COUNT 4.45 10^6/uL (4.00-5.40); WHITE BLOOD COUNT 6.4 10^3/uL (4.0-10.0)
[2021-02-23 09:25] LABS: ALBUMIN 3.5 GM/DL (3.2-5.2); ALT/SGPT 29 U/L (12-78); BILIRUBIN,TOTAL 0.9 MG/DL (0.2-1.0); BLOOD UREA NITROGEN 14 MG/DL (7-18); CALCIUM LEVEL 9.8 MG/DL (8.8-10.2); CARBON DIOXIDE LEVEL 28 MEQ/L (21-32); CHLORIDE LEVEL 107 MEQ/L (98-107); CHOLESTEROL LEVEL 141 MG/DL (<200); CHOLESTEROL RISK RATIO 2.764 (<5); CREATININE FOR GFR 0.93 MG/DL (0.55-1.30); GLOMERULAR FILTRATION RATE > 60.0 (>45); GLUCOSE, FASTING 97 MG/DL (70-100); HDL CHOLESTEROL 51 MG/DL (>40); LDL CHOLESTEROL 54 MG/DL (<100); NON-HDL-C 90 MG/DL; SODIUM LEVEL 141 MEQ/L (136-145); TRIGLYCERIDES LEVEL 179 MG/DL (<150)
== END ==
LOC: M LAB 08:02
PROVIDERS: ATTEND Family Medicine
DX: I10 Essential (primary) hypertension (principal)

== ENCOUNTER → 2021-03-01 | Outpatient (CLI) | payer MEDICARE, OTHER ==
[~2021-03-01] MED LIST changes: -ASPI81CH33 PO; -ATOR40TA75 PO; -CHLO125TA PO; -CORE6.25 PO; -LANS15CA PO; -LANS30CA PO; -SPIR-10 PO; -XALA0.007 OU
--- NOTE | 2021-03-03 14:31 | SLEEPCENT ---
DATE: 03/01/2021 ORDERED BY: HERRERA Baumann Nocturnal polysomnography was performed for the titration of pressure therapy in this patient with obstructive sleep apnea syndrome. For testing a [employer] full face mask of medium size was used, 4 cm of water pressure were applied to the circuit, and the lights were extinguished. Eight hours of data were reviewed. There were 414 minutes of sleep identified. Sleep latency was mildly prolonged at 30 minutes. REM latency was more so prolonged at 194 minutes. Sleep architecture improved with optimal pressure therapy. Overall sleep efficiency was only 87.2%. The electrocardiogram showed a sinus rhythm with an average heart rate of 56 beats per minute. EEG showed reasonably normal waveforms for wake and sleep. Respiratory events were best palliated with CPAP at a pressure of +7 with some limb activity noted with 3 to 4 trains of 30 events identified. Limb movement arousal index was 4.6. IMPRESSIONS: Obstructive sleep apnea syndrome (G47.33). RECOMMENDATION: Nightly use of pressure therapy 7 cm of water. cc: MD ANMOL MARTINEZ M.D.
== END ==
LOC: M SLEEP 20:00
PROVIDERS: ATTEND Nurse Practitioner Family
DX: G47.33 Obstructive sleep apnea (adult) (pediatric) (principal)

== ENCOUNTER 2021-03-20 11:53 | Emergency (ER) | payer MEDICARE, OTHER ==
[~2021-03-20] VITALS: Ht 170.2 cm; Wt 98.6 kg
[2021-03-20 12:39] LABS: BASO % 0.7 % (0.0-1.0); EOS # 0.1 10^3/uL (0.0-0.5); EOS % 1.5 % (0.0-3.0); HEMATOCRIT 38.7 % (36.0-47.0); HEMOGLOBIN 12.7 g/dl (12.0-15.5); LYMPH # 1.6 10^3/uL (1.5-5.0); LYMPH % 27.7 % (24.0-44.0); MEAN CORPUSCULAR HEMOGLOBIN 29.1 pg (27.0-33.0); MEAN CORPUSCULAR HGB CONC 32.8 g/dl (32.0-36.5); MEAN CORPUSCULAR VOLUME 88.6 fl (80.0-96.0); MONO # 0.4 10^3/uL (0.0-0.8); NEUTROPHILS # 3.7 10^3/uL (1.5-8.5); NEUTROPHILS % 62.8 % (36.0-66.0); PLATELET COUNT, AUTOMATED 276 10^3/uL (150-450); RED BLOOD COUNT 4.37 10^6/uL (4.00-5.40); WHITE BLOOD COUNT 5.9 10^3/uL (4.0-10.0)
[2021-03-20 13:01] LABS: CK-MB VALUE MASS 2.3 NG/ML (<3.6); MB/CK RELATIVE INDEX 1.65 (< OR =4)
[2021-03-20 13:22] LABS: ALBUMIN 3.3 GM/DL (3.2-5.2); ALT/SGPT 25 U/L (12-78); BILIRUBIN,DIRECT 0.2 MG/DL (0.0-0.2); BILIRUBIN,TOTAL 0.8 MG/DL (0.2-1.0); BLOOD UREA NITROGEN 12 MG/DL (7-18); CALCIUM LEVEL 8.6 MG/DL (8.8-10.2); CARBON DIOXIDE LEVEL 25 MEQ/L (21-32); CHLORIDE LEVEL 110 MEQ/L (98-107); CREATININE FOR GFR 0.92 MG/DL (0.55-1.30); GLOMERULAR FILTRATION RATE > 60.0 (>45); GLUCOSE, FASTING 102 MG/DL (70-100); LIPASE 50 U/L (73-393); POTASSIUM SERUM 3.6 MEQ/L (3.5-5.1); SODIUM LEVEL 139 MEQ/L (136-145); TOTAL PROTEIN 6.9 GM/DL (6.4-8.2)
[2021-03-20] MEDS ORDERED: ISOVUE-370 76% 100ML VIAL As Ordered ONE (15:29)
[2021-03-20] MEDS ORDERED: LABETALOL 100MG TAB PO ONE (15:35)
[2021-03-20 15:45] VITALS: BP 217/98
[2021-03-20] MEDS ORDERED: CHLO125TA PO (15:49)
[2021-03-20] MEDS ORDERED: LANS15CA PO (15:49)
[2021-03-20] MEDS ORDERED: LANS30CA PO (17:25)
[2021-03-20] MEDS ORDERED: ASPI81CH33 PO (17:25)
[2021-03-20] MEDS ORDERED: ATOR40TA75 PO (17:25)
[2021-03-20] MEDS ORDERED: XALA0.007 OU (17:25)
[2021-03-20 17:47] VITALS: BP 157/85
[2021-03-21] MEDS ORDERED: SPIR-10 PO (21:22)
[2021-03-21] MEDS ORDERED: CORE6.25 PO (21:22)
[2021-03-21] MEDS ORDERED: CHLO125TA PO (21:22)
== END 2021-03-20 17:57 | disposition home or self-care (01) ==
LOC: M ED 11:53
DX: I10 Essential (primary) hypertension (principal); E78.5 Hyperlipidemia, unspecified; G43.909 Migraine, unspecified, not intractable, without status migrainosus; Z87.442 Personal history of urinary calculi; Z79.899 Other long term (current) drug therapy; Z79.82 Long term (current) use of aspirin
CPT/HCPCS: 36415; 71045; 71275; 80048; 80076; 82550; 82553; 83690; 84484; 85025; 93005; 93041; 94760; 99285; Q9967

== ENCOUNTER 2021-03-21 17:42 | Emergency (ER) | payer MEDICARE, OTHER ==
[~2021-03-21] VITALS: Ht 170.2 cm; Wt 98.3 kg
[~2021-03-21 17:42] MED LIST changes: +ASPI81CH33 PO; +ATOR40TA75 PO; +CHLO125TA PO; +LANS15CA PO; +LANS30CA PO; +XALA0.007 OU
[2021-03-21] MEDS ORDERED: CARVedilol 6.25 MG TAB PO ONE (20:15)
[2021-03-21] MEDS ORDERED: FUROSEMIDE 40MG/4ML VIAL (J1940) IV ONE (20:15)
[2021-03-21 20:42] VITALS: BP 150/74
[2021-03-21] MEDS ORDERED: CORE6.25 PO (21:22)
[2021-03-21] MEDS ORDERED: CHLO125TA PO (21:22)
[2021-03-21] MEDS ORDERED: SPIR-10 PO (21:22)
[2021-03-21 21:30] VITALS: BP 151/73
== END 2021-03-21 22:07 | disposition home or self-care (01) ==
LOC: M ED 17:42
DX: I10 Essential (primary) hypertension (principal); G43.909 Migraine, unspecified, not intractable, without status migrainosus; Z87.442 Personal history of urinary calculi; Z79.899 Other long term (current) drug therapy; Z79.82 Long term (current) use of aspirin
CPT/HCPCS: 96360; 96361; 96374; 99284; J1940

== ENCOUNTER → 2021-09-19 | Outpatient (CLI) | payer MEDICARE, OTHER ==
[~2021-09-19] MED LIST changes: +CORE6.25 PO; +SPIR-10 PO
[2021-09-19 16:24] LABS: BLOOD UREA NITROGEN 19 MG/DL (7-18); CALCIUM LEVEL 9.4 MG/DL (8.8-10.2); CARBON DIOXIDE LEVEL 30 MEQ/L (21-32); CHLORIDE LEVEL 105 MEQ/L (98-107); CREATININE FOR GFR 0.87 MG/DL (0.55-1.30); GLOMERULAR FILTRATION RATE > 60.0 (>45); GLUCOSE, FASTING 95 MG/DL (70-100); POTASSIUM SERUM 3.9 MEQ/L (3.5-5.1); SODIUM LEVEL 139 MEQ/L (136-145)
== END ==
LOC: M LAB 15:10
PROVIDERS: ATTEND Internal Medicine Cardiovascular Disease
DX: I10 Essential (primary) hypertension (principal)

== ENCOUNTER → 2022-04-17 | Outpatient (CLI) | payer MEDICARE, OTHER ==
[~2022-04-17] MED LIST changes: -MAXA10TA14 PO; +RIZA10TA64 PO
[2022-04-17 09:46] LABS: HEMATOCRIT 42.8 % (36.0-47.0); HEMOGLOBIN 13.7 g/dl (12.0-15.5); MEAN CORPUSCULAR HEMOGLOBIN 29.5 pg (27.0-33.0); MEAN CORPUSCULAR VOLUME 92.2 fl (80.0-96.0); PLATELET COUNT, AUTOMATED 228 10^3/uL (150-450); RED BLOOD COUNT 4.64 10^6/uL (4.00-5.40); WHITE BLOOD COUNT 9.8 10^3/uL (4.0-10.0)
[2022-04-17 09:54] LABS: ALBUMIN 3.8 G/DL (3.2-5.2); ALKALINE PHOSPHATASE 110 U/L (46-116); ALT/SGPT 25 U/L (7.0-40); AST/SGOT 20 U/L (<34); BILIRUBIN,TOTAL 1.3 MG/DL (0.3-1.2); BLOOD UREA NITROGEN 22 MG/DL (9-23); CARBON DIOXIDE LEVEL 30 MMOL/L (20-31); CHLORIDE LEVEL 105 MMOL/L (98-107); CHOLESTEROL LEVEL 153 MG/DL (<200); CREATININE FOR GFR 0.96 MG/DL (0.55-1.30); GLOMERULAR FILTRATION RATE > 60.0 (>45); GLUCOSE, FASTING 98 MG/DL (74-106); HDL CHOLESTEROL 49.3 MG/DL (>40); LDL CHOLESTEROL 83.3 MG/DL (<100); NON-HDL-C 104 MG/DL; POTASSIUM SERUM 4.5 MMOL/L (3.5-5.1); SODIUM LEVEL 142 MMOL/L (136-145); TOTAL PROTEIN 6.7 G/DL (5.7-8.2); TRIGLYCERIDES LEVEL 102 MG/DL (<150)
== END ==
LOC: M LAB 08:10
PROVIDERS: ATTEND Family Medicine
DX: I10 Essential (primary) hypertension (principal)

== ENCOUNTER → 2022-05-01 | Outpatient (CLI) | payer MEDICARE, OTHER ==
[2022-05-01 13:33] LABS: APPEARANCE, URINE MANUAL CLEAR (CLEAR); BILIRUBIN, URINE MANUAL NEGATIVE (NEGATIVE); BLOOD URINE MANUAL NEGATIVE (NEGATIVE); COLOR, URINE MANUAL YELLOW (YELLOW); GLUCOSE, URINE (UA) MANUAL NEGATIVE (NEGATIVE); KETONE, URINE MANUAL NEGATIVE (NEGATIVE); NITRITE, URINE MANUAL NEGATIVE (NEGATIVE); PROTEIN, URINE MANUAL NEGATIVE (NEGATIVE); UROBILINOGEN, URINE MANUAL NORMAL (NORMAL)
[2022-05-01 13:34] LABS: LEUKOCYTE ESTERASE, URINE MAN TRACE (NEGATIVE)
[2022-05-01 13:44] LABS: BACTERIA, URINE SMALL AMOUNT; HYALINE CAST, URINE NONE SEEN /lpf (0-1); RBC, URINE 0-1 /hpf (0-3); SQUAMOUS EPITHELIAL CELL URINE SMALL AMOUNT /hpf (SMALL AMT)
== END ==
LOC: M LAB 13:03
PROVIDERS: ATTEND Family Medicine
DX: R30.0 Dysuria (principal)

== ENCOUNTER → 2022-05-17 | Outpatient (CLI) | payer MEDICARE, OTHER ==
[~2022-05-17] MED LIST changes: +ISOVUE-370 76% 100ML VIAL As Ordered ONE
== END ==
LOC: M RAD 13:01
PROVIDERS: ATTEND Family Medicine
DX: R30.0 Dysuria (principal)
CPT/HCPCS: 74178; Q9967

== ENCOUNTER → 2022-08-10 | Outpatient (CLI) | payer MEDICARE, OTHER ==
[~2022-08-10] MED LIST changes: +CALC1TAB26 PO; +CARV6.25 PO; +ESTR10TA PO; -ISOVUE-370 76% 100ML VIAL As Ordered ONE; +LANS30CA93 PO; +XALA0.007 OS; -XALA0.007 OU
[2022-08-10 11:57] LABS: HEMATOCRIT 41.1 % (36.0-47.0); HEMOGLOBIN 13.4 g/dl (12.0-15.5); MEAN CORPUSCULAR HEMOGLOBIN 29.4 pg (27.0-33.0); MEAN CORPUSCULAR HGB CONC 32.6 g/dl (32.0-36.5); MEAN CORPUSCULAR VOLUME 90.1 fl (80.0-96.0); PLATELET COUNT, AUTOMATED 218 10^3/uL (150-450); RED BLOOD COUNT 4.56 10^6/uL (4.00-5.40); WHITE BLOOD COUNT 5.6 10^3/uL (4.0-10.0)
[2022-08-10 11:59] LABS: APPEARANCE, URINE HAZY (CLEAR); BACTERIA, URINE AUTO NEGATIVE (NEGATIVE); BILIRUBIN, URINE AUTO NEGATIVE (NEGATIVE); BLOOD, URINE BLOOD NEGATIVE (NEGATIVE); COLOR, URINE YELLOW (YELLOW); GLUCOSE, URINE (UA) AUTO NEGATIVE (NEGATIVE); KETONE, URINE AUTO NEGATIVE (NEGATIVE); LEUKOCYTE ESTERASE, URINE AUTO 2+ (NEGATIVE); MUCUS, URINE SMALL (NEGATIVE); NITRITE, URINE AUTO NEGATIVE (NEGATIVE); PROTEIN, URINE AUTO NEGATIVE (NEGATIVE); RBC, URINE AUTO 0 /HPF (0-3); SPECIFIC GRAVITY URINE AUTO 1.018 (1.002-1.035); SQUAMOUS EPITHELIAL CELL UR AU 15 /HPF (0-6); UROBILINOGEN, URINE AUTO 0.2 mg/dL (0.0-2.0); WBC, URINE AUTO 1 /HPF (0-3)
[2022-08-10 12:22] LABS: CALCIUM LEVEL 9.7 MG/DL (8.3-10.6); CREATININE FOR GFR 1.09 MG/DL (0.55-1.30); GLOMERULAR FILTRATION RATE 53.3 (>45); POTASSIUM SERUM 4.5 MMOL/L (3.5-5.1)
== END ==
LOC: M LAB 11:01
PROVIDERS: ATTEND Physician Assistant
DX: Z01.818 Encounter for other preprocedural examination (principal); Z79.899 Other long term (current) drug therapy

== ENCOUNTER → 2022-08-16 | Day surgery (SDC) | payer MEDICARE, OTHER ==
[~2022-08-16] VITALS: Ht 170.2 cm; Wt 83.9 kg
[~2022-08-16] MED LIST changes: +ACETAMINOPHEN 1000MG 100ML IV BAG As Ordered ONE; +HYDROMORPHONE HCL 0.5 MG/ 0.5 ML SYRINGE IV PRN; +ISOVUE-300 61% 100ML VIAL As Ordered ONE; +LIDOCAINE 2% 100MG/5ML SDV (FOR ANES.) As Ordered ONE; +LR 1,000 ML IV SCH; +MIDAZOLAM INJ 2MG/2ML VIAL As Ordered ONE; +ONDANSETRON 4MG 2ML VIAL As Ordered ONE; +ONDANSETRON 4MG 2ML VIAL IV PRN; +PERCOCET 5MG/325MG TAB PO PRN; +PHENYLephrine 500MCG 5ML (100MCG/ML) SYRINGE As Ordered ONE; +ceFAZolin SOD 2 GM in IV 1 EA IV ONE; +ePHEDrine SULFATE 25 MG/5 ML(5MG/ML) SYRINGE As Ordered ONE; +fentaNYL 100 MCG/2 ML INJECTION As Ordered ONE; +fentaNYL 100 MCG/2 ML INJECTION IV PRN; +oxyCODONE 5MG TAB PO PRN; +propofoL 200 MG/20 ML VIAL As Ordered ONE
[2022-08-16 10:05] VITALS: BP 157/76
[2022-08-23 17:08] LABS: Ca Ox Monohydrate 100 % (.)
== END | disposition home or self-care (01) ==
LOC: M SDC 06:08
PROVIDERS: ATTEND Urology
DX: N20.1 Calculus of ureter (principal); I10 Essential (primary) hypertension; E78.5 Hyperlipidemia, unspecified; K21.9 Gastro-esophageal reflux disease without esophagitis; F32.A Depression, unspecified; M85.80 Other specified disorders of bone density and structure, unspecified site; G47.33 Obstructive sleep apnea (adult) (pediatric); G43.909 Migraine, unspecified, not intractable, without status migrainosus; I25.10 Atherosclerotic heart disease of native coronary artery without angina pectoris; R94.31 Abnormal electrocardiogram [ECG] [EKG]; Z87.891 Personal history of nicotine dependence; Z79.899 Other long term (current) drug therapy
CPT/HCPCS: 52356; 74420; 82365; C1769; C2617; J0131; J0690; J1100; J2250; J2370; J2405; J3010; Q9967

== ENCOUNTER → 2022-09-17 | Outpatient (REF) | payer MEDICARE, OTHER ==
[~2022-09-17] MED LIST changes: -ACETAMINOPHEN 1000MG 100ML IV BAG As Ordered ONE; -HYDROMORPHONE HCL 0.5 MG/ 0.5 ML SYRINGE IV PRN; -ISOVUE-300 61% 100ML VIAL As Ordered ONE; -LIDOCAINE 2% 100MG/5ML SDV (FOR ANES.) As Ordered ONE; -LR 1,000 ML IV SCH; -MIDAZOLAM INJ 2MG/2ML VIAL As Ordered ONE; -ONDANSETRON 4MG 2ML VIAL As Ordered ONE; -ONDANSETRON 4MG 2ML VIAL IV PRN; -PERCOCET 5MG/325MG TAB PO PRN; -PHENYLephrine 500MCG 5ML (100MCG/ML) SYRINGE As Ordered ONE; -ceFAZolin SOD 2 GM in IV 1 EA IV ONE; -ePHEDrine SULFATE 25 MG/5 ML(5MG/ML) SYRINGE As Ordered ONE; -fentaNYL 100 MCG/2 ML INJECTION As Ordered ONE; -fentaNYL 100 MCG/2 ML INJECTION IV PRN; -oxyCODONE 5MG TAB PO PRN; -propofoL 200 MG/20 ML VIAL As Ordered ONE
== END ==
LOC: M LAB REF 18:56
PROVIDERS: ATTEND Internal Medicine
DX: N39.0 Urinary tract infection, site not specified (principal)

== ENCOUNTER → 2023-05-08 | Outpatient (CLI) | payer MEDICARE, OTHER ==
[2023-05-08 08:35] LABS: BASO % 0.6 % (0.0-1.0); EOS # 0.1 10^3/uL (0.0-0.5); HEMATOCRIT 39.7 % (36.0-47.0); LYMPH # 1.8 10^3/uL (1.5-5.0); LYMPH % 34.8 % (24.0-44.0); MEAN CORPUSCULAR HEMOGLOBIN 30.2 pg (27.0-33.0); MEAN CORPUSCULAR HGB CONC 32.7 g/dl (32.0-36.5); MEAN CORPUSCULAR VOLUME 92.1 fl (80.0-96.0); MONO # 0.4 10^3/uL (0.0-0.8); MONO % 8.5 % (2.0-8.0); NEUTROPHILS # 2.8 10^3/uL (1.5-8.5); NEUTROPHILS % 54.9 % (36.0-66.0); PLATELET COUNT, AUTOMATED 219 10^3/uL (150-450); RED BLOOD COUNT 4.31 10^6/uL (4.00-5.40); WHITE BLOOD COUNT 5.1 10^3/uL (4.0-10.0)
[2023-05-08 09:08] LABS: ALBUMIN 3.8 G/DL (3.2-5.2); ALKALINE PHOSPHATASE 101 U/L (46-116); ALT/SGPT 19 U/L (7.0-40); AST/SGOT 14 U/L (<34); BILIRUBIN,TOTAL 1.2 MG/DL (0.3-1.2); BLOOD UREA NITROGEN 18 MG/DL (9-23); CALCIUM LEVEL 9.1 MG/DL (8.3-10.6); CARBON DIOXIDE LEVEL 29 MMOL/L (20-31); CHLORIDE LEVEL 106 MMOL/L (98-107); CHOLESTEROL LEVEL 154 MG/DL (<200); CHOLESTEROL RISK RATIO 3.14 (<5); GLOMERULAR FILTRATION RATE > 60.0 (>45); GLUCOSE, FASTING 103 MG/DL (74-106); LDL CHOLESTEROL 78.6 MG/DL (<100); POTASSIUM SERUM 3.9 MMOL/L (3.5-5.1); SODIUM LEVEL 139 MMOL/L (136-145); TOTAL PROTEIN 6.5 G/DL (5.7-8.2); TRIGLYCERIDES LEVEL 132 MG/DL (<150)
[2023-05-08 09:10] LABS: TOTAL 25(OH) VITAMIN D 34.5 NG/ML (20.0-100.0)
== END ==
LOC: M LAB 07:44
PROVIDERS: ATTEND Family Medicine
DX: I10 Essential (primary) hypertension (principal); M85.9 Disorder of bone density and structure, unspecified

== ENCOUNTER → 2023-07-28 | Outpatient (REF) | payer MEDICARE, OTHER ==
[~2023-07-28] MED LIST changes: +BAYE81TA7 PO; +BUPR-597 PO; -BUPR300T92 PO; +ESTR0.5T3 PO
== END ==
LOC: M WUC 19:03
PROVIDERS: ATTEND Student in an Organized Health Care Education/Training Program
DX: R30.0 Dysuria (principal)

== ENCOUNTER 2023-08-03 08:30 | Day surgery (SDC) | payer MEDICARE, OTHER ==
[~2023-08-03] VITALS: Ht 170.2 cm; Wt 84.9 kg
[2023-08-03] MEDS: NS 1,000 ML IV ONE (06:00)
[2023-08-03] MEDS ORDERED: propofoL 200 MG/20 ML VIAL As Ordered ONE (09:32)
[2023-08-03 09:48] VITALS: TEMP 98.4
[2023-08-03 10:10] VITALS: BP 119/58; O2SAT 100
== END 2023-08-03 10:16 | disposition home or self-care (01) ==
LOC: M OPP 08:30
PROVIDERS: ATTEND Internal Medicine Gastroenterology
DX: Z12.11 Encounter for screening for malignant neoplasm of colon (principal); Z12.12 Encounter for screening for malignant neoplasm of rectum; D12.6 Benign neoplasm of colon, unspecified; K64.0 First degree hemorrhoids; K21.9 Gastro-esophageal reflux disease without esophagitis; I10 Essential (primary) hypertension; E78.00 Pure hypercholesterolemia, unspecified; G47.30 Sleep apnea, unspecified; Z90.710 Acquired absence of both cervix and uterus; Z79.899 Other long term (current) drug therapy; Z79.82 Long term (current) use of aspirin; Z87.891 Personal history of nicotine dependence

== ENCOUNTER → 2023-09-04 | Outpatient (CLI) | payer MEDICARE, OTHER | LOC: M RAD 15:32 | PROVIDERS: ATTEND Urology | DX: N20.0 Calculus of kidney (principal) ==

== ENCOUNTER → 2024-03-27 | Outpatient (CLI) | payer MEDICARE, OTHER | LOC: M SLEEP 20:00 | PROVIDERS: ATTEND Physician Assistant | DX: G47.33 Obstructive sleep apnea (adult) (pediatric) (principal) ==

== ENCOUNTER → 2024-04-30 | Outpatient (CLI) | payer MEDICARE, OTHER ==
[2024-04-30 10:13] LABS: BASO % 0.3 % (0.0-1.0); EOS % 0.3 % (0.0-3.0); HEMATOCRIT 41.8 % (36.0-47.0); HEMOGLOBIN 13.7 g/dl (12.0-15.5); LYMPH # 1.5 10^3/uL (1.5-5.0); LYMPH % 20.7 % (24.0-44.0); MEAN CORPUSCULAR HEMOGLOBIN 30.1 pg (27.0-33.0); MEAN CORPUSCULAR HGB CONC 32.8 g/dl (32.0-36.5); MEAN CORPUSCULAR VOLUME 91.9 fl (80.0-96.0); MONO # 0.4 10^3/uL (0.0-0.8); MONO % 5.8 % (2.0-8.0); NEUTROPHILS # 5.4 10^3/uL (1.5-8.5); NEUTROPHILS % 72.6 % (36.0-66.0); PLATELET COUNT, AUTOMATED 185 10^3/uL (150-450); RED BLOOD COUNT 4.55 10^6/uL (4.00-5.40); WHITE BLOOD COUNT 7.4 10^3/uL (4.0-10.0)
[2024-04-30 10:25] LABS: HEMOGLOBIN A1c 5.4 % (4.0-6.0)
[2024-04-30 10:44] LABS: C REACTIVE PROTEIN QUANTITATIV < 0.50 MG/DL (<1.0)
[2024-04-30 10:45] LABS: ALBUMIN 3.6 G/DL (3.2-5.2); ALKALINE PHOSPHATASE 71 U/L (35-104); ALT/SGPT 22 U/L (7.0-40); AST/SGOT 16 U/L (<34); BILIRUBIN,DIRECT 0.3 MG/DL (<0.4); BILIRUBIN,TOTAL 1.1 MG/DL (0.3-1.2); BLOOD UREA NITROGEN 22 MG/DL (9-23); CALCIUM LEVEL 9.2 MG/DL (8.3-10.6); CARBON DIOXIDE LEVEL 28 MMOL/L (20-31); CHLORIDE LEVEL 110 MMOL/L (98-107); CHOLESTEROL LEVEL 132 MG/DL (<200); CHOLESTEROL RISK RATIO 2.53 (<5); GLOMERULAR FILTRATION RATE > 60.0 (>45); GLUCOSE, FASTING 94 MG/DL (74-106); HDL CHOLESTEROL 52.1 MG/DL (>40); LDL CHOLESTEROL 66.1 MG/DL (<100); NON-HDL-C 79.9 MG/DL; PHOSPHORUS LEVEL 3.5 MG/DL (2.4-5.1); POTASSIUM SERUM 4.7 MMOL/L (3.5-5.1); SODIUM LEVEL 142 MMOL/L (136-145); TOTAL PROTEIN 6.7 G/DL (5.7-8.2); TRIGLYCERIDES LEVEL 69 MG/DL (<150)
[2024-04-30 10:46] LABS: THYROXINE (T4) 7.3 UG/DL (4.5-10.9)
[2024-04-30 10:47] LABS: THYROID STIMULATING HORMONE 0.999 uIU/ML (0.55-4.78)
== END ==
LOC: M LAB 09:08
PROVIDERS: ATTEND Nurse Practitioner Family
DX: E66.3 Overweight (principal); R73.03 Prediabetes

== ENCOUNTER → 2024-06-27 | Outpatient (CLI) | payer MEDICARE, OTHER | LOC: M SLEEP 20:00 | PROVIDERS: ATTEND Physician Assistant | DX: G47.33 Obstructive sleep apnea (adult) (pediatric) (principal); G47.61 Periodic limb movement disorder ==

== ENCOUNTER → 2024-07-28 | Outpatient (CLI) | payer MEDICARE, OTHER ==
[~2024-07-28] MED LIST changes: -BUPR-597 PO; +BUPR-766 PO; -FLOM0.4C39 PO; +TAMS-18 PO
[2024-07-28 12:15] LABS: BASO % 0.6 % (0.0-1.0); EOS % 0.4 % (0.0-3.0); HEMATOCRIT 41.8 % (36.0-47.0); HEMOGLOBIN 13.5 g/dl (12.0-15.5); LYMPH # 1.9 10^3/uL (1.5-5.0); LYMPH % 38.6 % (24.0-44.0); MEAN CORPUSCULAR HEMOGLOBIN 29.9 pg (27.0-33.0); MEAN CORPUSCULAR HGB CONC 32.3 g/dl (32.0-36.5); MEAN CORPUSCULAR VOLUME 92.5 fl (80.0-96.0); MONO # 0.4 10^3/uL (0.0-0.8); MONO % 7.6 % (2.0-8.0); NEUTROPHILS # 2.5 10^3/uL (1.5-8.5); NEUTROPHILS % 52.6 % (36.0-66.0); PLATELET COUNT, AUTOMATED 193 10^3/uL (150-450); RED BLOOD COUNT 4.52 10^6/uL (4.00-5.40); WHITE BLOOD COUNT 4.8 10^3/uL (4.0-10.0)
[2024-07-28 12:28] LABS: HEMOGLOBIN A1c 5.4 % (4.0-6.0)
[2024-07-28 12:41] LABS: ALBUMIN 3.7 G/DL (3.2-5.2); BILIRUBIN,TOTAL 1.3 MG/DL (0.3-1.2); CALCIUM LEVEL 9.5 MG/DL (8.3-10.6); CHOLESTEROL RISK RATIO 2.63 (<5); CREATININE FOR GFR 0.93 MG/DL (0.55-1.30); GLOMERULAR FILTRATION RATE 66.5 (>45); HDL CHOLESTEROL 47.8 MG/DL (>40); LDL CHOLESTEROL 64.2 MG/DL (<100); MAGNESIUM LEVEL 1.9 MG/DL (1.8-2.4); NON-HDL-C 78.2 MG/DL; POTASSIUM SERUM 4.6 MMOL/L (3.5-5.1); TOTAL PROTEIN 6.7 G/DL (5.7-8.2)
[2024-07-29 11:11] LABS: LDL DIRECT 60 mg/dL (<100)
[2024-07-29 15:37] LABS: NT PRO BNP SO 84 pg/mL (<125)
== END ==
LOC: M LAB 11:21
PROVIDERS: ATTEND Internal Medicine Cardiovascular Disease
DX: E78.2 Mixed hyperlipidemia (principal); G47.33 Obstructive sleep apnea (adult) (pediatric); I50.32 Chronic diastolic (congestive) heart failure; I11.0 Hypertensive heart disease with heart failure; R94.31 Abnormal electrocardiogram [ECG] [EKG]; I48.0 Paroxysmal atrial fibrillation; Z79.899 Other long term (current) drug therapy

== ENCOUNTER → 2024-12-22 | Outpatient (CLI) | payer MEDICARE, OTHER | LOC: M LAB 15:50 → M RAD 15:50 | PROVIDERS: ATTEND Family Medicine | DX: M51.26 Other intervertebral disc displacement, lumbar region (principal) ==

== ENCOUNTER → 2025-01-14 | Outpatient (CLI) | payer MEDICARE, OTHER | LOC: M RAD 16:01 | PROVIDERS: ATTEND Family Medicine | DX: M51.26 Other intervertebral disc displacement, lumbar region (principal); M47.816 Spondylosis without myelopathy or radiculopathy, lumbar region ==